=== PATIENT | female | born 1945 | race Caucasian/White ===

== ENCOUNTER 2022-12-20 08:42 | Outpatient (CLI) | payer MEDICARE, SELFPAY ==
[2022-12-20 14:33] LABS: Basophils Absolute Auto 0.1 K/mm3 (0.0-0.1); Basophils Percent Auto 0.8 % (0.2-1.2); Eosinophils Absolute Auto 0.2 K/mm3 (0-0.3); Eosinophils Percent Auto 2.8 % (0-4.4); Hematocrit 39.2 % (37.0-47.0); Hemoglobin 12.8 g/dL (12.0-15.0); Immature Granulocyte Absolute 0.03 K/mm3 (0.00-0.031); Immature Granulocyte Percent A 0.5 % (0-0.5); Lymphocytes Percent Auto 21.5 % (18.3-44.2); Mean Corpuscular HGB Conc 32.7 g/dl (32-36); Mean Corpuscular Hemoglobin 28.6 pg (26-34); Mean Corpuscular Volume 87.5 fl (80-100); Mean Platelet Volume 9.5 fl (7.4-10.4); Monocytes Absolute Auto 0.7 K/mm3 (0.1-0.6); Monocytes Percent Auto 11.6 % (2.6-8.5); Neutrophils Absolute Auto 3.8 K/mm3 (1.3-6.7); Neutrophils Percent Auto 62.8 % (45.5-73.1); Platelet Count Result 344 k/mm3 (150-375); Red Blood Count 4.48 M/mm3 (4.2-5.4); Red Cell Distribution Width 13.1 % (11.5-14.5); White Blood Count 6.1 K/mm3 (4.5-10.0)
[2022-12-20 14:41] LABS: Alanine Aminotransferase 24 U/L (6-35); Albumin Level 4.3 g/dL (3.5-5.1); Alkaline Phosphatase 131 U/L (38-126); Anion Gap 4 mmol/L (8-16); Aspartate Amino Transferase 29 U/L (14-36); Bilirubin,Total 0.6 mg/dL (0.2-1.3); Blood Urea Nitrogen 12 mg/dL (7-17); Calcium 9.4 mg/dL (8.4-10.2); Carbon Dioxide 29 mmol/L (22-30); Chloride 101 mmol/L (98-107); Cholesterol 181 mg/dL (0-200); Estimated Glomerular Filt Rate > 60; Glucose 96 mg/dL (65-110); HDL Direct 42 mg/dL; Potassium 4.3 mmol/L (3.4-5.0); Sodium 134 mmol/L (137-145); Triglycerides 78 mg/dL (<150)
[2022-12-20 14:52] LABS: LDL Cholesterol Direct 100 mg/dL
[2022-12-24 04:48] LABS: Apolipoprotein B 92 mg/dL (<90)
[2022-12-25 04:48] LABS: Lipoprotein A 117 nmol/L (<75)
== END 2022-12-20 08:43 | disposition home or self-care (01) ==
LOC: ANHGOSHLAB 08:47
PROVIDERS: PCP Internal Medicine; Visit Provider Internal Medicine
DX: E03.9 Hypothyroidism, unspecified (principal); I25.10 Atherosclerotic heart disease of native coronary artery without angina pectoris; I10 Essential (primary) hypertension; I25.84 Coronary atherosclerosis due to calcified coronary lesion; E78.5 Hyperlipidemia, unspecified
CPT/HCPCS: 36415; 80053; 80061; 82172; 83695; 84443; 85025

== ENCOUNTER 2023-05-15 10:46 | Emergency (ER) | payer MEDICARE, SELFPAY ==
--- NOTE | ~2023-05-15 | XR_ITS ---
XR knee LT 3V 05/15/2023 11:19 Indication: Left knee pain Procedure: 3 views left knee Comparison: No prior studies for comparison. Findings: Moderate osteoarthritis of the left knee. No fracture or traumatic malalignment. Small join t effusion. No foreign bodies. Impression: 1: Moderate osteoarthritis of the left knee. 2: Small knee effusion. Reviewed, dictated and finalized at location B. ORDER CLERK Impression: 1: Moderate osteoarthritis of the left knee. 2: Small knee effusion.
[2023-05-15 11:03] VITALS: BP 168/77; PULSE 91; RESP 16; TEMP 37.1; O2SAT 97
--- NOTE | 2023-05-15 11:12 | ED.LOWEXIN ---
HPI - Extremity Injury (Lower) General Chief Complaint: Extremity Injury, Lower Stated Complaint: L KNEE PAIN/SWELLING Time Seen by Provider: 05/15/23 11:12 Source: patient, RN notes reviewed and old records reviewed Mode of arrival: ambulatory Limitations: no limitations History of Present Illness HPI Narrative: 77-year-old female presents [facility] with complaints of left knee pain and swelling. Patient reports that she got out of bed yesterday morning and felt a pop to her posterior left knee. Patient report that she had previous meniscus surgery to her left knee about 5 or 6 years ago in [place] were they lived. Family just relocated to this area in the past year. Patient does have mild swelling to her nee and has discomfort to posterior left knee, is able to ambulate on knee without acute pain. Patient has applied ice, Voltaren ointment and taken OTC pain medication. MD complaint: knee injury (left) Onset (ago): day(s) (1) Severity scale (1-10): 4 Treatments prior to arrival: cold therapy, NSAIDS and other (voltaren ointment) Related Data Home Medications Medication Instructions Recorded Confirmed albuterol sulfate 90 mcg/actuation 1 puff inhalation Q4H 12/18/22 05/15/23 aerosol inhaler antiarthritic combination no.2 900 900 mg PO DAILY 12/18/22 05/15/23 mg tablet (glucosamine-chondroitin) budesonide-formoterol HFA 160 2 puff inhalation Q12H 12/18/22 05/15/23 mcg-4.5 mcg/actuation aerosol inhaler calcium carbonate 600 mg-vitamin 1 cap PO DAILY 12/18/22 05/15/23 D3 10 mcg (400 unit) capsule ferrous sulfate 325 mg (65 mg 325 mg PO DAILY 12/18/22 05/15/23 iron) tablet ipratropium bromide 42 mcg (0.06 2 spray intranasal BID 12/18/22 05/15/23 %) nasal spray levothyroxine 25 mcg tablet 25 mcg PO DAILY 12/18/22 05/15/23 loratadine 10 mg tablet 10 mg PO DAILY 12/18/22 05/15/23 [id number]-[id number] 250 mg-dha 90 1 cap PO DAILY 12/18/22 05/15/23 mg-epa 160 mr-ipvf-watj-zeax capsule (Ocuvite Adult 50 Plus) multivitamin 1 tablet PO DAILY 12/18/22 05/15/23 omeprazole 20 mg capsule,delayed 20 mg PO ONCE 01/15/23 05/15/23 release Allergies Allergy/AdvReac Type Severity Reaction Status Date / Time No Known Allergies Allergy Unverified 05/15/23 11:00 Review of Systems Review of Systems: CONSTITUTIONAL: Denies fever, chills, or sweats. EYES: Denies visual changes, redness, or discharge. ENT: Denies rhinorrhea, congestion, sore throat, or otalgia. CARDIOVASCULAR: Denies chest pain, palpitations, or edema. RESPIRATORY: Denies cough or dyspnea. GASTROINTESTINAL: Denies abdominal pain, nausea, vomiting, or diarrhea. GENITOURINARY: Denies dysuria or hematuria. SKIN: Denies rash or itching. MUSCULOSKELETAL: Denies back pain,reports pain to posterior left knee , or myalgia. NEUROLOGIC: Denies headache, numbness, or weakness. PSYCHIATRIC: Denies anxiety or depression. All systems reviewed & are unremarkable except as noted in HPI and below PMFSH Past Medical History Medical History Acquired hypothyroidism Asthma Chronic asthmatic bronchitis Chronic congestion of paranasal sinus COPD (chronic obstructive pulmonary disease) Coronary atherosclerosis due to calcified coronary lesion GERD (gastroesophageal reflux disease) History of syncope Hyperlipidemia Hypertension Thyroid disorder Surgical History Surgical History History of esophagogastroduodenoscopy (EGD) History of meniscectomy of left knee Family History Family History Father Heart problem Mother Multiple sclerosis Grandparent Heart problem Social History Social History Smoking status: Never smoker Second hand tobacco smoke exposure: No Alcohol intake: never Substance use: never Lack of Transportati
== END 2023-05-15 11:43 | disposition home or self-care (01) ==
PROVIDERS: Emergency Provider Registered Nurse; PCP Internal Medicine
DX: M25.562 Pain in left knee (principal); E03.9 Hypothyroidism, unspecified; J44.9 Chronic obstructive pulmonary disease, unspecified; I25.10 Atherosclerotic heart disease of native coronary artery without angina pectoris; E78.5 Hyperlipidemia, unspecified; I10 Essential (primary) hypertension
CPT/HCPCS: 73562; 99213; G0463

== ENCOUNTER 2023-05-18 08:34 | Outpatient (CLI) | payer MEDICARE, SELFPAY ==
[2023-05-18 09:04] LABS: Basophils Absolute Auto 0.1 K/mm3 (0.0-0.1); Basophils Percent Auto 0.8 % (0.2-1.2); Eosinophils Absolute Auto 0.2 K/mm3 (0-0.3); Eosinophils Percent Auto 2.5 % (0-4.4); Hematocrit 41.8 % (37.0-47.0); Hemoglobin 13.4 g/dL (12.0-15.0); Immature Granulocyte Absolute 0.03 K/mm3 (0.00-0.031); Immature Granulocyte Percent A 0.5 % (0-0.5); Lymphocytes Percent Auto 20.3 % (18.3-44.2); Mean Corpuscular HGB Conc 32.1 g/dl (32-36); Mean Corpuscular Hemoglobin 28.5 pg (26-34); Mean Corpuscular Volume 88.7 fl (80-100); Mean Platelet Volume 9.2 fl (7.4-10.4); Monocytes Absolute Auto 0.5 K/mm3 (0.1-0.6); Monocytes Percent Auto 8.5 % (2.6-8.5); Neutrophils Percent Auto 67.4 % (45.5-73.1); Platelet Count Result 354 k/mm3 (150-375); Red Blood Count 4.71 M/mm3 (4.2-5.4); Red Cell Distribution Width 13.2 % (11.5-14.5); White Blood Count 5.9 K/mm3 (4.5-10.0)
[2023-05-18 09:08] LABS: Alanine Aminotransferase 27 U/L (6-35); Albumin Level 4.7 g/dL (3.5-5.1); Alkaline Phosphatase 112 U/L (38-126); Anion Gap 11 mmol/L (8-16); Aspartate Amino Transferase 28 U/L (14-36); Bilirubin,Total 0.6 mg/dL (0.2-1.3); Blood Urea Nitrogen 11 mg/dL (7-17); Calcium 9.8 mg/dL (8.4-10.2); Carbon Dioxide 26 mmol/L (22-30); Chloride 102 mmol/L (98-107); Cholesterol 162 mg/dL (0-200); Estimated Glomerular Filt Rate > 60; Glucose 99 mg/dL (65-110); HDL Direct 49 mg/dL; Potassium 4.2 mmol/L (3.4-5.0); Sodium 139 mmol/L (137-145); Triglycerides 100 mg/dL (<150)
[2023-05-18 09:18] LABS: LDL Cholesterol Direct 72 mg/dL
[2023-05-22 04:17] LABS: Apolipoprotein B 71 mg/dL (<90)
== END 2023-05-18 08:35 | disposition home or self-care (01) ==
LOC: ANHLAB 08:36
PROVIDERS: PCP Internal Medicine; Visit Provider Internal Medicine
DX: E03.9 Hypothyroidism, unspecified (principal); E78.5 Hyperlipidemia, unspecified; I10 Essential (primary) hypertension; I25.10 Atherosclerotic heart disease of native coronary artery without angina pectoris; I25.84 Coronary atherosclerosis due to calcified coronary lesion; J45.909 Unspecified asthma, uncomplicated
CPT/HCPCS: 36415; 80053; 80061; 82172; 84443; 85025

== ENCOUNTER 2023-05-31 08:44 | Outpatient (RCR) | payer MEDICARE, OTHER, SELFPAY ==
--- NOTE | 2023-05-31 10:05 | PTOPEVAL1 ---
Assessment and note entered by Katty Calderon, PT, DPT Evaluation Information Assessment Status Evaluation Diagnosis L knee pain Onset 1 month Subjective Information Pt states about a month ago she turned to get out of bed and felt a pop in her knee. She states initially after that it was really painful and it was hard to put weight on her leg. She states the next few days she used a cane to get around. She states she has no consistent pain now. She now reports intermittent soreness along the medial patella and posterior knee fossa. Pt states she continues to ride her bike and walk without knee pain, her SOB is a limiting factor. Reported Pain Level Pain Score 0: Self Report Assessment PT Clinical Summary Teressa presents to therapy today for her initial evaluation with a diagnosis of L knee pain. Today she demonstrates good LE ROM with a minor limitation in active extension but demonstrates good passive extension. She demonstrates no functional limitations d/t her knee. She was given extensive education on benefits of consistent exercise and was given information on community resources. She does not require skilled therapy services and will be discharged at this time. Plan of Care Interventions Patient/Caregiver Educati,Therapeutic Exercise PT Services Indicated No Treatment Frequency and evaluation and discharge Duration These treatments will address the objective and functional deficits as defined above. The patient will be advanced safely and appropriately in order for the patient to progress towards his/her prior level of function. Additional exercises will be introduced and as well as a comprehensive home exercise program upon discharge, if needed, ?to ensure carryover of functional gains achieved in the clinic. This treatment plan has been reviewed and agreement upon by the patient.
== END 2023-05-31 10:32 | disposition home or self-care (01) ==
LOC: ANHGOSHPT 08:44
PROVIDERS: PCP Internal Medicine; Visit Provider Internal Medicine
DX: M25.562 Pain in left knee (principal)
CPT/HCPCS: 97110; 97161

== ENCOUNTER 2023-06-25 11:28 | Emergency (ER) | payer MEDICARE, SELFPAY ==
[2023-06-25 11:36] VITALS: BP 142/72; PULSE 106; RESP 16; TEMP 37.3; O2SAT 96
--- NOTE | 2023-06-25 11:36 | ED.AMS ---
HPI - Altered Mental Status General Chief Complaint: Neuro Symptoms/Deficit Stated Complaint: Unknown Time Seen by Provider: 06/25/23 11:30 Source: patient and family Mode of arrival: ambulatory Limitations: no limitations History of Present Illness HPI narrative: Teressa is a 77-year-old female patient presenting to the clinic today with her with concerns for altered mental status. Has been reports that patient has not been acting appropriately since last night before 10:00 p.m.. States that they were getting ready to go to bed and patient's spouse asked her what time it was and she told him it was 430 when that was not the actual time. He reports that she has been very slow to respond and hesitant with using her words. stated that he thought that she was ?pulling his leg . States that they went to bed afterwards. When she woke up this morning she was sitting in a chair and he was talking to the patient and she was not responding at that time. When she finally did respond she was again hesitant when using her words and slow to respond. She reports she does have a headache this morning. Denies any urinary symptoms. 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 Patient's son-in-law in February and she has been has having hard time dealing with this. At the time of visit patient is conscious alert oriented x4. Is able to tell me that the recent holiday was , knows what day of the week it is, who the president is, name/, and her current location. No history of TIA or CVA in the past. Patient does have history hyperlipidemia, high blood pressure, hypothyroidism, and coronary artery disease. No history of diabetes. Related Data Home Medications Medication Instructions Recorded Confirmed albuterol sulfate 90 mcg/actuation 1 puff inhalation Q4H 12/18/22 06/25/23 aerosol inhaler antiarthritic combination no.2 900 900 mg PO DAILY 12/18/22 06/25/23 mg tablet (glucosamine-chondroitin) budesonide-formoterol HFA 160 2 puff inhalation Q12H 12/18/22 06/25/23 mcg-4.5 mcg/actuation aerosol inhaler calcium carbonate 600 mg-vitamin 1 cap PO DAILY 12/18/22 06/25/23 D3 10 mcg (400 unit) capsule ferrous sulfate 325 mg (65 mg 325 mg PO DAILY 12/18/22 06/25/23 iron) tablet levothyroxine 25 mcg tablet 25 mcg PO DAILY 12/18/22 06/25/23 loratadine 10 mg tablet 10 mg PO DAILY 12/18/22 06/25/23 sxusubwa-cok- 250 mg-dha 90 1 cap PO DAILY 12/18/22 06/25/23 mg-epa 160 du-opip-wmqq-zeax capsule (Ocuvite Adult 50 Plus) multivitamin 1 tablet PO DAILY 12/18/22 06/25/23 omeprazole 20 mg capsule,delayed 20 mg PO ONCE 01/15/23 06/25/23 release Allergies Allergy/AdvReac Type Severity Reaction Status Date / Time No Known Allergies Allergy Unverified 06/25/23 11:31 Review of Systems Review of Systems: Pertinent positives per HPI. Patient denies any fever, chills, rash, visual changes, dizziness, cough, shortness of breath, chest pain, palpitations, nausea, vomiting, diarrhea, constipation, abdominal pain, or any urinary issues. FORMERLY [facility], [facility]–1983 Past Medical History Medical History Acquired hypothyroidism Asthma Chronic asthmatic bronchitis Chronic congestion of paranasal sinus COPD (chronic obstructive pulmonary disease) Coronary atherosclerosis due to calcified coronary lesion GERD (gastroesophageal reflux disease) History of syncope Hyperlipidemia Hypertension Thyroid disorder Surgical History Surgical History History of esophagogastroduodenoscopy (EGD) History of meniscectomy of left knee Family History Family History Father Heart problem Mother Multiple sclerosis Grandparent Heart problem Social History Social History Smoking status: Never smoker
== END 2023-06-25 11:55 | disposition short-term general hospital (02) ==
LOC: EXPGOSH 11:33
PROVIDERS: Emergency Provider Nurse Practitioner Family; PCP Internal Medicine
DX: R41.82 Altered mental status, unspecified (principal); E03.9 Hypothyroidism, unspecified; J44.9 Chronic obstructive pulmonary disease, unspecified; I25.10 Atherosclerotic heart disease of native coronary artery without angina pectoris; K21.9 Gastro-esophageal reflux disease without esophagitis; E78.5 Hyperlipidemia, unspecified; I10 Essential (primary) hypertension
CPT/HCPCS: 99213; G0463

== ENCOUNTER 2023-06-25 12:18 | Emergency (ER) | payer MEDICARE, SELFPAY ==
--- NOTE | ~2023-06-25 | CT_ITS ---
Non-contrast Head CT History: TIA Technique: Axial non-contrast imaging of the brain was performed. Dose reduction technique was used on this scan by utilizing automated exposure control and iterative reconstruction technique. The dose -length product (DLP) was 681.00 mGy-cm. Findings: There is no evidence of intracranial hemorrhage, mass lesion, or acute infarct. Chronic bi lateral basal ganglia lacunar infarcts noted. The ventricles and subarachnoid spaces are normal in s ize. The calvarium appears normal. The visualized paranasal sinuses and mastoid air cells are clear . Impression: No acute abnormality seen. Chronic bilateral basal ganglia lacunar infarcts. Reviewed, dictated and finalized at location . ENT STRATEGIST Impression: No acute abnormality seen. Chronic bilateral basal ganglia lacunar infarcts.
--- NOTE | ~2023-06-25 | XR_ITS ---
XR chest 2V DATE: 06/25/2023 14:32 INDICATION: Cough. Confusion. Altered mental state. TECHNIQUE: PA and lateral views COMPARISON: None FINDINGS: Minimal atelectasis is suggested at the lung bases. The lungs otherwise appear clear. No pulmonary vascular congestion or pleural effusion or pneumothorax is detected. No hilar or mediastinal enlargement. There is aortic calcification. Diffuse osteopenia. IMPRESSION: Minimal atelectasis at the lung bases. Reviewed, dictated and finalized at location L. ECT MANAGER SENIOR
[2023-06-25 12:25] VITALS: BP 156/77; PULSE 95; RESP 18; TEMP 36.7; O2SAT 100
--- NOTE | 2023-06-25 14:04 | ED.GENADULT ---
HPI - General Adult General Chief complaint: Altered Mental Status <Dirk Verduzco PA-C - Last Filed: 06/25/23 14:45> Stated complaint: boss/confusion <Dirk Verduzco PA-C - Last Filed: 06/25/23 14:45> Time Seen by Provider: 06/25/23 14:04 <Dirk Verduzco PA-C - Last Filed: 06/25/23 14:45> Focused HPI: This is a 77-year-old female presents with her and with chief complaint of altered level of consciousness that occurred a yesterday evening and this morning. They were seen by urgent care today and referred over for possible TIA. states that when it was time for bed last night the patient responded to him by repeating 435 as if that was the time. He reports that she continued to answer questions inappropriately and had very slow speech. The same thing happened this morning. Here the patient feel that she is back to baseline at this point. She denies any numbness, weakness, neck pain, fevers, chills, vision changes. GENERAL: Well-appearing, well-nourished, and in no acute distress. HEAD: Normocephalic, atraumatic. CHEST: Clear to auscultation. No respiratory distress. HEART: Regular rate and rhythm. NEURO: Alert and oriented x4. No focal deficit. Answers questions appropriately. Patient screened in triage and initial orders placed. Additional care and disposition to be based upon diagnostic testing and treatment. <Dirk Verduzco PA-C - Last Filed: 06/25/23 14:45> Related Data Home medications: Home Medications Medication Instructions Recorded Confirmed albuterol sulfate 90 mcg/actuation 1 puff inhalation Q4H 12/18/22 06/25/23 aerosol inhaler antiarthritic combination no.2 900 900 mg PO DAILY 12/18/22 06/25/23 mg tablet (glucosamine-chondroitin) budesonide-formoterol HFA 160 2 puff inhalation Q12H 12/18/22 06/25/23 mcg-4.5 mcg/actuation aerosol inhaler calcium carbonate 600 mg-vitamin 1 cap PO DAILY 12/18/22 06/25/23 D3 10 mcg (400 unit) capsule ferrous sulfate 325 mg (65 mg 325 mg PO DAILY 12/18/22 06/25/23 iron) tablet levothyroxine 25 mcg tablet 25 mcg PO DAILY 12/18/22 06/25/23 loratadine 10 mg tablet 10 mg PO DAILY 12/18/22 06/25/23 acyjqjly-uve-dofmd5 250 mg-dha 90 1 cap PO DAILY 12/18/22 06/25/23 mg-epa 160 rc-ijkc-gmqk-zeax capsule (Ocuvite Adult 50 Plus) multivitamin 1 tablet PO DAILY 12/18/22 06/25/23 omeprazole 20 mg capsule,delayed 20 mg PO ONCE 01/15/23 06/25/23 release <Dirk Verduzco PA-C - Last Filed: 06/25/23 14:45> Allergies/adverse reactions: Allergies Allergy/AdvReac Type Severity Reaction Status Date / Time No Known Allergies Allergy Unverified 06/25/23 14:05 <Dirk Verduzco PA-C - Last Filed: 06/25/23 14:45> Review of Systems Review of Systems: All systems are reviewed and are negative unless stated otherwise in the HPI. <Lee Mcfarland MD - Last Filed: 06/25/23 17:01> PMFSH Past Medical History Medical History: Medical History Acquired hypothyroidism Asthma Chronic asthmatic bronchitis Chronic congestion of paranasal sinus COPD (chronic obstructive pulmonary disease) Coronary atherosclerosis due to calcified coronary lesion GERD (gastroesophageal reflux disease) History of syncope Hyperlipidemia Hypertension Thyroid disorder <Dirk Verduzco PA-C - Last Filed: 06/25/23 14:45> Surgical History Surgical History: Surgical History History of esophagogastroduodenoscopy (EGD) History of meniscectomy of left knee <Dirk Verduzco PA-C - Last Filed: 06/25/23 14:45> Family History Family History: Family History Father Heart problem Mother Multiple sclerosis Grandparent Heart problem <Dirk Verduzco PA-C - Last Filed: 06/25/23 14:45> Social History Social History: Social History (Reviewed 06/25/23 @ 16:
[2023-06-25 14:06] VITALS: BP 174/56; PULSE 87; RESP 17; O2SAT 96
[2023-06-25 14:27] LABS: Basophils Percent Auto 0.5 % (0.2-1.2); Hematocrit 41.2 % (37.0-47.0); Hemoglobin 13.4 g/dL (12.0-15.0); Immature Granulocyte Absolute 0.03 K/mm3 (0.00-0.031); Immature Granulocyte Percent A 0.4 % (0-0.5); Lymphocytes Absolute Auto 1.21 K/mm3 (0.9-3.2); Lymphocytes Percent Auto 14.5 % (18.3-44.2); Mean Corpuscular HGB Conc 32.5 g/dl (32-36); Mean Corpuscular Hemoglobin 28.6 pg (26-34); Mean Corpuscular Volume 87.8 fl (80-100); Mean Platelet Volume 9.1 fl (7.4-10.4); Monocytes Percent Auto 11.5 % (2.6-8.5); Neutrophils Absolute Auto 6.1 K/mm3 (1.3-6.7); Neutrophils Percent Auto 73.1 % (45.5-73.1); Platelet Count Result 292 k/mm3 (150-375); Red Blood Count 4.69 M/mm3 (4.2-5.4); Red Cell Distribution Width 13.6 % (11.5-14.5); White Blood Count 8.3 K/mm3 (4.5-10.0)
[2023-06-25 14:36] LABS: Alanine Aminotransferase 23 U/L (6-35); Albumin Level 4.2 g/dL (3.5-5.1); Alkaline Phosphatase 112 U/L (38-126); Anion Gap 8 mmol/L (8-16); Aspartate Amino Transferase 27 U/L (14-36); Bilirubin,Total 0.5 mg/dL (0.2-1.3); Blood Urea Nitrogen 12 mg/dL (7-17); Carbon Dioxide 28 mmol/L (22-30); Chloride 96 mmol/L (98-107); Estimated CRCL calculation 49 ml/min; Estimated Glomerular Filt Rate > 60; Glucose 97 mg/dL (65-110); Potassium 4.3 mmol/L (3.4-5.0); Sodium 132 mmol/L (137-145)
[2023-06-25 14:37] LABS: Prothrombin Time 13.3 Seconds (11.1-14.7)
[2023-06-25 14:38] LABS: Partial Thromboplastin Time 35.4 SECONDS (22.3-36.8)
[2023-06-25] MEDS: ACETAMINOPHEN 325 MG TABLET 650 MG PO (14:43)
[2023-06-25 16:04] VITALS: PULSE 90; RESP 23; O2SAT 96
[2023-06-25 16:05] VITALS: BP 161/80; PULSE 87; RESP 24; O2SAT 95
[2023-06-25 16:21] LABS: Appearance Urine Cloudy (Clear); Bacteria Urine 4+ /hpf; Bilirubin Urine Negative (Negative); Blood Urine 2+ (Negative); Color Urine Yellow (Yellow); Glucose Urine UA Negative (Negative); Ketones Urine 1+ mg/dL (Negative); Leukocyte Esterase Ur 2+ LEU/UL (Negative); Nitrate Urine Positive (Negative); Protein Urine 1+ mg/dL (Negative); Squamous Epithelial Cell Urine Few /hpf (Few); WBC Urine 21-50 /hpf
[2023-06-25 16:23] LABS: Add Urine Microscopic? YES
[2023-06-25 17:26] VITALS: BP 136/68; PULSE 79; RESP 20; O2SAT 94
== END 2023-06-25 17:27 | disposition home or self-care (01) ==
PROVIDERS: Physician Assistant; Emergency Provider Emergency Medicine; PCP Internal Medicine
DX: N39.0 Urinary tract infection, site not specified (principal); J44.9 Chronic obstructive pulmonary disease, unspecified; I25.10 Atherosclerotic heart disease of native coronary artery without angina pectoris; I10 Essential (primary) hypertension; E03.9 Hypothyroidism, unspecified; E78.5 Hyperlipidemia, unspecified; K21.9 Gastro-esophageal reflux disease without esophagitis
CPT/HCPCS: 36415; 70450; 71046; 80053; 81001; 85025; 85610; 85730; 87077; 87086; 87186; 96365; 99284; A9270; J0696

== ENCOUNTER 2023-08-16 09:05 | Outpatient (CLI) | payer MEDICARE, OTHER, SELFPAY ==
--- NOTE | ~2023-08-16 | CT_ITS ---
EXAMINATION: CT sinus wo con DATE: 08/16/2023 09:23 INDICATION: Chronic maxillary sinusitis TECHNIQUE: Computed tomography (CT) of the paranasal sinuses was performed without intravenous contra st. The dose-length product (DLP) was 399.18 mGy-cm. Iterative reconstruction was used. COMPARISON: None FINDINGS: There is normal development and pneumatization of the paranasal sinuses. There is partial o pacification of the bilateral maxillary sinuses with sclerosis of the maxillary sinus nichole. There is minimal opacification in the posterior ethmoidal air cells on the right. The frontal and sphenoid si nuses are clear. The bilateral ostiomeatal complexes are patent. Visualized soft tissues are unremark able. IMPRESSION: 1. Sinusitis as detailed above with evidence of chronic maxillary sinusitis Reviewed, dictated and finalized at location B. S MANAGER [employer]ED [employer]ALS
== END 2023-08-16 09:06 ==
LOC: GOSHIMG 09:07
PROVIDERS: PCP Internal Medicine; Visit Provider Otolaryngology
DX: J34.89 Other specified disorders of nose and nasal sinuses (principal); J32.0 Chronic maxillary sinusitis
CPT/HCPCS: 70486

== ENCOUNTER 2023-11-25 09:57 | Outpatient (CLI) | payer MEDICARE, SELFPAY ==
[2023-11-25 13:46] LABS: Alanine Aminotransferase 19 U/L (6-35); Albumin Level 4.5 g/dL (3.5-5.1); Alkaline Phosphatase 100 U/L (38-126); Anion Gap 8 mmol/L (4-12); Aspartate Amino Transferase 68 U/L (14-36); Bilirubin,Total 0.5 mg/dL (0.2-1.3); Blood Urea Nitrogen 10 mg/dL (7-17); Calcium 9.5 mg/dL (8.4-10.2); Carbon Dioxide 28 mmol/L (22-30); Chloride 100 mmol/L (98-107); Estimated Glomerular Filt Rate > 60; Glucose 77 mg/dL (65-110); Potassium 4.6 mmol/L (3.4-5.0); Sodium 136 mmol/L (137-145)
== END 2023-11-25 09:58 | disposition home or self-care (01) ==
PROVIDERS: PCP Internal Medicine; Visit Provider Internal Medicine
DX: E03.9 Hypothyroidism, unspecified (principal); E87.1 Hypo-osmolality and hyponatremia; I10 Essential (primary) hypertension
CPT/HCPCS: 36415; 80053; 84443

== ENCOUNTER 2023-11-25 10:05 | Outpatient (CLI) | payer MEDICARE, OTHER, SELFPAY ==
--- NOTE | ~2023-11-25 | XR_ITS ---
XR humerus RT Ordering provider: Jaylen Purcell DO History: . no injury mid shaft pain . Comparison: None. FINDINGS: BONES: No acute fracture or dislocation. JOINT SPACES: Normal. SOFT TISSUES: Normal. IMPRESSION: No acute osseous abnormality right humerus. Reviewed, dictated and finalized at location A.
== END 2023-11-25 10:06 ==
LOC: GOSHIMG 10:06
PROVIDERS: PCP Internal Medicine; Visit Provider Internal Medicine
DX: M79.621 Pain in right upper arm (principal)
CPT/HCPCS: 73060

== ENCOUNTER 2023-12-06 14:03 | Outpatient (CLI) | payer MEDICARE, SELFPAY ==
--- NOTE | ~2023-12-06 | DEXA_ITS ---
Bone Density Report Name: NEETA DUMAS Age: 78 Sex: Female Ethnicity: White Date of : 1945 Indication: postmenopausal; screening for osteoporosis; height loss; history of glucocorticoids; prior fracture; asthma or emphysema; Referring Provider: MOISÉS NASH Study: Bone densitometry was performed. Exam Date: December 06, 2023 Accession number: [id number] Bone Density: Region BMD T-score Z-score Classification AP Spine(L1, L2, L4) 0.871 -1.5 1.0 Osteopenia Femoral Neck (Left) 0.668 -1.6 0.6 Osteopenia Total Hip (Left) 0.664 -2.3 -0.4 Osteopenia Femoral Neck (Right) 0.599 -2.2 -0.1 Osteopenia Total Hip (Right) 0.650 -2.4 -0.5 Osteopenia Total Hip Mean 0.657 -2.4 -0.5 Osteopenia World Health Organization criteria for BMD impression classify patients as: Normal (T-score at or above -1.0), Osteopenia (T-score between -1.0 and -2.5), or Osteoporosis (T-score at or below -2.5). 10-year Fracture Risk: FRAX not reported because: Prior hip or vertebral fracture Clinical Information Provided by Patient: Have had a previous hip or vertebral fracture Has had a low trauma fracture Has taken Glucocorticoids Has used the following medications: Vitamin D, Calcium Has the following medical conditions: Asthma or Emphysema Patient maximum height was 64.75 Menopause Age: 51 Drinks caffeinated beverages Onset of menses at age 14 Number of children 3 Impression: The patient has low bone mass, based on the Right Total Hip T-score. The patient has risk factors, including: previous fracture, history of glucocorticoid therapy. Discussion: INCREASED RISK OF FRACTURE DUE TO HISTORY OF FRACTURE. The patient's previous fracture puts the patient at high risk of a future fracture. In untreated patients, the risk of osteoporotic fracture increases approximately two-fold for each 1.0 SD decrease in T-score. Low bone density is not the only risk factor for fracture; also consider factors such as patient's age, frailty or poor health, risk of falling, risk of injury, previous osteoporotic fracture, family history of osteoporosis, cigarette smoking, low body weight, etc. Not everyone with a low trauma fracture has osteoporosis; osteomalacia and other metabolic bone disorders should also be considered. Patients who have osteoporosis should be evaluated for specific diseases and conditions (secondary causes) that may cause or contribute to bone loss and fracture risk. National Osteoporosis Foundation (NOF) recommends pharmacologic intervention for patients with a prior hip or vertebral fracture regardless of BMD T-score. The patient should follow a healthful lifestyle (good nutrition with adequate calcium and vitamin D, and appropriate weight-bearing exercise). Follow-Up: Consider a repeat BMD and Vertebral Fracture Assessment
== END 2023-12-06 14:04 | disposition home or self-care (01) ==
PROVIDERS: PCP Internal Medicine; Visit Provider Internal Medicine
DX: M85.89 Other specified disorders of bone density and structure, multiple sites (principal); Z78.0 Asymptomatic menopausal state; Z13.820 Encounter for screening for osteoporosis
CPT/HCPCS: 77080

== ENCOUNTER 2023-12-19 11:57 | Outpatient (RCR) | payer MEDICARE, SELFPAY ==
--- NOTE | 2023-12-19 12:46 | PTOPEVAL1 ---
Assessment and note entered by Yoseph Rodriguez Evaluation Information Assessment Status Evaluation Diagnosis pain in right arm Onset 06/20/23 Subjective Information Pt. reports having a gradual onset of right arm pain described in the lateral brachial region. She recalls no trauma. She reports that pain was gradually worsening, but she has since noticed a significant improvement in her pain over the past couple weeks. She states that she recently had a bone density scan indicating osteoporosis. She states that her pain has been gone over the past couple weeks. She reports that reaching overhead was painful when she was experiencing pain. She states that she has not been limited in daily activities over the past 2 weeks. She reports that she is uncertain of her current goal for PT due to pain having been minimal to nothing over the past couple weeks. Reported Pain Level Pain Score 0: Self Report Assessment PT Clinical Summary Pt. is a 78 year old female who enters the clinic with developed right arm pain. Pt. presentation this date is consistent with mild rotator cuff syndrome on the right. She demonstrates no functional deficits and is currently independent with a HEP. She was provided WB exercises to assist with hx of osteoporosis. At this time pt. is encouraged to continue with her HEP and will be discharged from our care. Plan of Care PT Services Indicated No Treatment Frequency and D/C from PT to an independent HEP. Duration These treatments will address the objective and functional deficits as defined above. The patient will be advanced safely and appropriately in order for the patient to progress towards his/her prior level of function. Additional exercises will be introduced and as well as a comprehensive home exercise program upon discharge, if needed, ?to ensure carryover of functional gains achieved in the clinic. This treatment plan has been reviewed and agreement upon by the patient.
--- NOTE | 2024-03-06 16:08 | PTOPDC ---
Assessment and note entered by Sergio King, PT Evaluation Information Assessment Status Discharge - Pt Not Presen Diagnosis pain in right arm Onset 06/20/23 Subjective Information Pt. reports having a gradual onset of right arm pain described in the lateral brachial region. She recalls no trauma. She reports that pain was gradually worsening, but she has since noticed a significant improvement in her pain over the past couple weeks. She states that she recently had a bone density scan indicating osteoporosis. She states that her pain has been gone over the past couple weeks. She reports that reaching overhead was painful when she was experiencing pain. She states that she has not been limited in daily activities over the past 2 weeks. She reports that she is uncertain of her current goal for PT due to pain having been minimal to nothing over the past couple weeks. Assessment PT Clinical Summary Patient has not returned to therapy since initial evaluation on December 19, 2023. No contact with clinic. Patient will be discharged at this time to [facility]. Please see evaluation note for discharge status. Plan of Care PT Services Indicated No
== END 2024-03-09 09:20 | disposition home or self-care (01) ==
LOC: ANHGOSHPT 11:57
PROVIDERS: PCP Internal Medicine; Visit Provider Internal Medicine
DX: M79.601 Pain in right arm (principal)
CPT/HCPCS: 97110; 97161

== ENCOUNTER 2023-12-30 08:34 | Outpatient (CLI) | payer MEDICARE, SELFPAY ==
[2023-12-30 15:44] LABS: Alanine Aminotransferase 19 U/L (6-35); Albumin Level 4.4 g/dL (3.5-5.1); Alkaline Phosphatase 102 U/L (38-126); Aspartate Amino Transferase 44 U/L (14-36); Bilirubin,Total 0.6 mg/dL (0.2-1.3)
== END 2023-12-30 08:35 | disposition home or self-care (01) ==
PROVIDERS: PCP Internal Medicine; Visit Provider Internal Medicine
DX: R74.8 Abnormal levels of other serum enzymes (principal)
CPT/HCPCS: 36415; 80076

== ENCOUNTER 2024-05-26 08:18 | Outpatient (CLI) | payer MEDICARE, OTHER, SELFPAY ==
[2024-05-26 13:54] LABS: Alanine Aminotransferase 21 U/L (6-35); Albumin Level 4.3 g/dL (3.5-5.1); Alkaline Phosphatase 97 U/L (38-126); Anion Gap 4 mmol/L (4-12); Aspartate Amino Transferase 87 U/L (14-36); Bilirubin,Total 0.7 mg/dL (0.2-1.3); Blood Urea Nitrogen 11 mg/dL (7-17); Calcium 9.7 mg/dL (8.4-10.2); Carbon Dioxide 31 mmol/L (22-30); Chloride 101 mmol/L (98-107); Estimated Glomerular Filt Rate > 60; Glucose 72 mg/dL (65-110); Potassium 4.4 mmol/L (3.4-5.0); Sodium 136 mmol/L (137-145)
== END 2024-05-26 08:19 | disposition home or self-care (01) ==
LOC: ANHGOSHLAB 08:21
PROVIDERS: PCP Internal Medicine; Visit Provider Internal Medicine
DX: E87.1 Hypo-osmolality and hyponatremia (principal)
CPT/HCPCS: 36415; 80053

== ENCOUNTER 2024-06-01 09:35 | Outpatient (CLI) | payer MEDICARE, OTHER, SELFPAY ==
[2024-06-01 13:01] LABS: Iron 66 ug/dL (37-170)
[2024-06-01 13:11] LABS: Percent Iron Saturation 19 % (20-50)
[2024-06-01 13:23] LABS: Hepatitis B Surface Antigen Negative (Negative)
[2024-06-01 13:40] LABS: Hepatitis C Virus Antibody Negative (Negative)
[2024-06-02 21:29] LABS: GGT 13 U/L (3-65)
== END 2024-06-01 09:36 | disposition home or self-care (01) ==
LOC: ANHGOSHLAB 09:38
PROVIDERS: PCP Internal Medicine; Visit Provider Internal Medicine
DX: R74.8 Abnormal levels of other serum enzymes (principal)
CPT/HCPCS: 36415; 82728; 82977; 83540; 83550; 86803; 87340

== ENCOUNTER 2024-06-11 09:18 | Outpatient (CLI) | payer MEDICARE, OTHER, SELFPAY ==
--- NOTE | ~2024-06-11 | US_ITS ---
EXAM: ABDOMEN ULTRASOUND HISTORY: R74.01 - Elevation of levels of liver transaminase levels COMPARISON: None FINDINGS: LIVER: The liver is unremarkable in echogenicity and size. The portal vein is patent demonstrating he patopedal flow. The contour of the liver is smooth. GALLBLADDER: No stones are identified within the gallbladder. No gallbladder wall thickening or pericholecystic fluid. BILE DUCTS: Common bile duct measures 3.8mm. PANCREAS: Limited evaluation of the pancreas secondary to overlying bowel gas SPLEEN: The spleen is unremarkable in echogenicity and size measuring 8cm in longitudinal dimension. RIGHT KIDNEY: 9.1 cm. In length. No hydronephrosis or bulky renal calculi. LEFT KIDNEY: 9.8cm in length. No hydronephrosis or renal calculi. VASCULATURE : The abdominal aorta is nonaneurysmal. The IVC is patent. IMPRESSION: Unremarkable sonographic evaluation of the abdomen, as detailed above. Evaluation of the pancreas is limited by overlying bowel gas. Reviewed, dictated and finalized at location A. EL POST CARRIER
== END 2024-06-11 09:19 | disposition home or self-care (01) ==
LOC: GOSHIMG 09:19
PROVIDERS: PCP Internal Medicine; Visit Provider Internal Medicine
DX: R74.01 Elevation of levels of liver transaminase levels (principal); R74.8 Abnormal levels of other serum enzymes
CPT/HCPCS: 76700

== ENCOUNTER 2024-07-30 10:24 | Emergency (ER) | payer MEDICARE, SELFPAY ==
[2024-07-30 10:37] VITALS: BP 136/64; PULSE 105; RESP 20; TEMP 37.5; O2SAT 94
--- NOTE | 2024-07-30 11:03 | ED_ITS ---
HPI - URI/Sore Throat General Chief Complaint: Upper Respiratory Infection Stated Complaint: Cough Time Seen by Provider: 07/30/24 10:40 Source: patient Mode of arrival: ambulatory Limitations: no limitations History of Present Illness HPI Narrative: 78-year-old female presents with complaint of cough, congestion, generalized weakness for 4-5 days. Reports increased fatigue, ?not feeling well ?. Shortness of breath exertion starting yesterday. Decreased appetite, eating and drinking little. All systems reviewed and negative except as noted above. Related Data Home Medications ?Medication ?Instructions ?Recorded ?Confirmed ?Last Taken ?Type antiarthritic combination no.2 900 900 mg PO DAILY 12/18/22 06/01/24 Unknown History mg tablet (glucosamine-chondroitin) budesonide-formoterol HFA 160 2 puff inhalation Q12H 12/18/22 06/01/24 Unknown History mcg-4.5 mcg/actuation aerosol inhaler calcium 600 mg (as 1 cap PO DAILY 12/18/22 06/01/24 Unknown History carbonate)-vitamin D3 10 mcg (400 unit) capsule ferrous sulfate 325 mg (65 mg 325 mg PO DAILY 12/18/22 06/01/24 Unknown History iron) tablet loratadine 10 mg tablet 10 mg PO DAILY 12/18/22 06/01/24 Unknown History chyanlkv-zkm- 250 mg-dha 90 1 cap PO DAILY 12/18/22 06/01/24 Unknown History mg-epa 160 gu-kfqp-oseq-zeax capsule (Ocuvite Adult 50 Plus) multivitamin 1 tablet PO DAILY 12/18/22 06/01/24 Unknown History cyanocobalamin (vitamin B-12) 100 100 mcg PO DAILY 09/30/23 06/01/24 Unknown History mcg tablet (Vitamin B-12) guaifenesin 600 mg tablet, 600 mg PO BID 09/30/23 06/01/24 Unknown History extended release 12 hr (Mucinex) Allergies Allergy/AdvReac Type Severity Reaction Status Date / Time No Known Allergies Allergy Verified 06/01/24 08:51 Review of Systems Review of Systems: CONSTITUTIONAL: Denies fever, chills, or sweats. Reports generalized weakness and fatigue EYES: Denies visual changes, redness, or discharge. ENT: Reports rhinorrhea, congestion. Denies sore throat, or otalgia. CARDIOVASCULAR: Denies chest pain, palpitations, or edema. RESPIRATORY: Reports cough. Denies dyspnea. GASTROINTESTINAL: Denies abdominal pain, nausea, vomiting, or diarrhea. GENITOURINARY: Denies dysuria or hematuria. SKIN: Denies rash or itching. MUSCULOSKELETAL: Denies back pain, joint pain, or myalgia. NEUROLOGIC: Denies headache, numbness, or weakness. PSYCHIATRIC: Denies anxiety or depression. All other systems reviewed are negative, except as documented in HPI. [facility] Past Medical History Medical History Chronic congestion of paranasal sinus Hyperlipidemia Acquired hypothyroidism Coronary atherosclerosis due to calcified coronary lesion History of syncope Chronic asthmatic bronchitis Thyroid disorder Hypertension GERD (gastroesophageal reflux disease) COPD (chronic obstructive pulmonary disease) Asthma Surgical History Surgical History History of esophagogastroduodenoscopy (EGD) History of meniscectomy of left knee Family History Family History Father Heart problem Mother Multiple sclerosis Grandparent Heart problem Social History Social History Social History: Caffeine-tea Smoking status: Never smoker Second hand tobacco smoke exposure: No Alcohol intake: never Substance use: never Substance use type: does not use Lack of Transportation: No Lack of Food: Never True Current Housing: I Have Housing Concerned About Future Housing: No Difficulty Paying Gas/Electric Bills: No Difficulty Paying for Meds: No Currently Unemployed: No Education: High School Diploma/GED Difficulty w/ Childcare or Family Care: No Living arrangements: with family Occupation/Education: retired Gender identity (if verbalized by the patient): Female Agree to blood products: Yes Comments At time of signature, agree with nursing past medical, surgical, social and family history. There is no relevant family history pertinent to the presenting complaint. Exam Narrative: GENERAL: This is a well-nourished, well-developed patient, ill-appearing but no acute distress HEAD: normocephalic, atraumatic. EYES: PERRL. Sclera clear/white. Vision is grossly intact. EARS: External ears normal, auditory canals clear and without drainage, TMs normal without perforation. Hearing grossly intact. NOSE: External nose normal with no obvious nasal discharge, nares without redness, no rhinorrhea. THROAT: Mucous membranes moist, posterior pharynx clear. NECK: Neck supple, non-tender without lymphadenopathy, masses or thyromegaly. CARDIOVASCULAR: Regular rate and rhythm without murmurs, gallops, or rubs. RESPIRATORY: Coarse right lung cleary on expiration otherwise clear. Breath sounds equal bilaterally. No wheezes, rales, or rhonchi. SKIN: warm, Dry, intact with no suspicious lesions or rash, good texture and turgor. NEURO: awake, alert, and oriented to person, place and time. There were no obvious focal neurologic abnormalities. EXTREMITIES: No joint tenderness, effusion, or edema noted. Course Course Level of Care: Express Care Visit Vital Signs Vital signs: Vital Signs Temperature 37.5 C 07/30/24 10:37 Pulse Rate 105 H 07/30/24 10:37 Respiratory Rate 20 07/30/24 10:37 Blood Pressure 136/64 07/30/24 10:37 Pulse Oximetry 94 07/30/24 10:37 Temperature 37.5 C 07/30/24 10:37 Pulse Rate 105 H 07/30/24 10:37 Respiratory Rate 20 07/30/24 10:37 Blood Pressure 136/64 07/30/24 10:37 Pulse Oximetry 94 07/30/24 10:37 Reviewed Transfer Transfered to: [facility] Transportation: [facility] Transfer rationale: Patient transferred to ER after syncopal episode x2. Accepting physician: Dr. Shelton [facility] - URI/Sore Throat [facility] Narrative Medical decision making narrative: Patient had a syncopal episode x2. Patient staring, diaphoretic, unresponsive, snoring respirations x2 [id number] at Express [facility]. Heart rate dropped to 40s and oxygen 90%. Patient placed oxygen, ambulance called. Patient transferred to ER. Report given to Dr. Shelton. was alert and talking on ambulance arrival Please be advised this is a medical document. It is intended for [id number] communication. It is written in medical language and may contain unfamiliar abbreviations or verbiage. Medical documents are intended to carry relevant information, facts as evident, and the clinical opinion of the practitioner at the time of the encounter. This report may have been done utilizing a voice recognition system. Attempts have been made to correct errors. However, there may be uncorrected grammatical, spelling, and recognition errors present. The file time of this note does not necessarily represent the time of service. Discharge Plan Discharge Clinical Impression: Syncope Patient Disposition: Acute Care Hospital Condition: Stable Patient Language: Japanese Prescriptions: No Action budesonide-formoterol 160-4.5 mcg/actuation HFA aerosol inhaler 2 puff inhalation Q12H calcium carbonate-vitamin D3 600 mg-10 mcg (400 unit) capsule 1 cap PO DAILY ferrous sulfate 325 mg (65 mg iron) tablet 325 mg PO DAILY glucosamine-chondroitin 900 mg tablet 900 mg PO DAILY loratadine 10 mg tablet 10 mg PO DAILY multivitamin Tablet 1 tablet PO DAILY Ocuvite Adult 50 Plus 250 mg (90 mg-160 mg) capsule 1 cap PO DAILY rosuvastatin 20 mg tablet 20 mg PO DAILY Qty: 90 3RF cyanocobalamin (vitamin B-12) [Vitamin B-12] 100 mcg tablet 100 mcg PO DAILY guaifenesin [Mucinex] 600 mg tablet extended release 12hr 600 mg PO BID albuterol sulfate 90 mcg/actuation HFA aerosol inhaler 1 puff inhalation Q4H PRN (Reason: shortness of breath or wheezing) Qty: 8.5 2RF montelukast 10 mg tablet 10 mg PO DAILY Qty: 30 3RF omeprazole 40 mg capsule,delayed release(DR/EC) 40 mg PO DAILY Qty: 90 3RF levothyroxine 25 mcg tablet 25 mcg PO DAILY Qty: 90 1RF losartan 25 mg tablet 50 mg PO DAILY Qty: 180 1RF Follow-up/Referrals: Jaylen Purcell DO [Primary Care Provider] - Time of Disposition: 11:02
--- NOTE | 2024-07-30 11:58 | PC.NURSE ---
1050 After ausculation of lungs, patient sitting upright in chair. As RN leaving the room, patient had her head bent towards her lap and staring, patient has patent airway with respirations even. Call for help initiated. Patient seemed to become more alert and answered to her name but then began to resume the same staring and snoring respirations for short time. physical support to patient to keep upright in chair, respirations remain even. Moved from Room 2 to stretcher in room 9 at 1100.
--- NOTE | 2024-07-30 12:06 | PC.NURSE ---
1100 Patient alert, oriented x3 at this time, transferred with assist of 2 persons. EMS personnel here-patient report to them.
== END 2024-07-30 11:05 | disposition short-term general hospital (02) ==
PROVIDERS: Emergency Provider Nurse Practitioner Family; PCP Internal Medicine
DX: R55 Syncope and collapse (principal); I10 Essential (primary) hypertension; E78.5 Hyperlipidemia, unspecified; I25.10 Atherosclerotic heart disease of native coronary artery without angina pectoris; J44.9 Chronic obstructive pulmonary disease, unspecified; K21.9 Gastro-esophageal reflux disease without esophagitis
CPT/HCPCS: 99215; G0463

== ENCOUNTER 2024-07-30 11:25 | Observation (INO) | payer MEDICARE, SELFPAY ==
[2024-07-30] VITALS (19 sets, daily range): BP systolic 153–180; BP diastolic 67–89; PULSE 85–97; RESP 18–22; TEMP 36.3–36.9; O2SAT 89–99; BMI 22.3
--- NOTE | ~2024-07-30 | XR_ITS ---
XR chest 2V 07/30/2024 11:55 Indication: AP and cough. COPD. Procedure: 2 view chest Comparison: 06/25/2023 Findings: There is left basilar airspace disease which may represent atelectasis or developing pneumo akilah. Heart size normal. No focal air space disease, pulmonary edema, pleural effusion or suspected pn eumothorax. No acute osseous abnormality. Impression: 1: Left basilar airspace disease may represent atelectasis or developing pneumonia. Reviewed, dictated and finalized at location B. [employer] Impression: 1: Left basilar airspace disease may represent atelectasis or developing pneumo akilah.
--- NOTE | 2024-07-30 11:33 | ECG_ITS ---
Test Date: 2024-07-30 11:34:14 Measurements Intervals [place] Rate: 91 P: 64 SD: 173 QRS: 52 QRSD: 89 T: 69 QT: 348 QTc: 430 Interpretive Statements SINUS RHYTHM MINIMAL Q WAVES- INFERIOR LEADS BORDERLINE ECG No previous ECG available for comparison Electronically Signed On 07-30-2024 11:46:52 CHIROPRA[employer]IC DOCTOR by Smith Huston D.O.
[2024-07-30 11:51] LABS: Basophils Absolute Auto 0.1 K/mm3 (0.0-0.1); Basophils Percent Auto 0.3 % (0.2-1.2); Eosinophils Percent Auto 0.1 % (0-4.4); Hematocrit 39.6 % (37.0-47.0); Hemoglobin 13.4 g/dL (12.0-15.0); Immature Granulocyte Absolute 0.05 K/mm3 (0.00-0.031); Immature Granulocyte Percent A 0.3 % (0-0.5); Lymphocytes Absolute Auto 1.63 K/mm3 (0.9-3.2); Lymphocytes Percent Auto 11.1 % (18.3-44.2); Mean Corpuscular HGB Conc 33.8 g/dl (32-36); Mean Corpuscular Hemoglobin 29.5 pg (26-34); Mean Platelet Volume 9.1 fl (7.4-10.4); Monocytes Absolute Auto 1.3 K/mm3 (0.1-0.6); Monocytes Percent Auto 8.5 % (2.6-8.5); Neutrophils Absolute Auto 11.7 K/mm3 (1.3-6.7); Neutrophils Percent Auto 79.7 % (45.5-73.1); Platelet Count Result 267 k/mm3 (150-375); Red Blood Count 4.55 M/mm3 (4.2-5.4); Red Cell Distribution Width 12.6 % (11.5-14.5); White Blood Count 14.7 K/mm3 (4.5-10.0)
[2024-07-30 12:04] LABS: Alanine Aminotransferase 20 U/L (6-35); Albumin Level 4.2 g/dL (3.5-5.1); Alkaline Phosphatase 122 U/L (38-126); Anion Gap 10 mmol/L (4-12); Aspartate Amino Transferase 22 U/L (14-36); Bilirubin,Total 0.8 mg/dL (0.2-1.3); Blood Urea Nitrogen 9 mg/dL (7-17); Calcium 9.3 mg/dL (8.4-10.2); Carbon Dioxide 24 mmol/L (22-30); Chloride 93 mmol/L (98-107); Estimated Glomerular Filt Rate > 60; Glucose 138 mg/dL (65-110); Potassium 3.9 mmol/L (3.4-5.0); Sodium 127 mmol/L (137-145)
--- NOTE | 2024-07-30 12:13 | ED.SYNCOPE ---
HPI - Syncope General Chief Complaint: Syncope Stated Complaint: SYNCOPY Time Seen by Provider: 07/30/24 12:06 Source: EMS Mode of arrival: EMS History of Present Illness HPI narrative: 78 years old white female referred to the emergency room from urgent care because of syncope twice during examination. Patient is telling me that she been feeling lousy over the last 6 days. had similar symptoms and he is improving. Patient report history of chronic cough for the last 5 years of unknown etiology, got worse over the last few days. Currently she denies any fever chills nausea vomiting chest pain or shortness of breath. History of hypertension hyperlipidemia asthma hypothyroidism not on anti-platelet or anticoagulant medication. Patient does not smoke or drink or use drugs Patient is telling me she was sitting on the chair at the urgent care and started feeling warm and hot with lightheadedness then blacked out for less than 1 minute, came back to normal 100%. No fall Related Data Home Medications ?Medication ?Instructions ?Recorded ?Confirmed ?Last Taken ?Type antiarthritic combination no.2 900 900 mg PO DAILY 12/18/22 06/01/24 Unknown History mg tablet (glucosamine-chondroitin) budesonide-formoterol HFA 160 2 puff inhalation Q12H 12/18/22 06/01/24 Unknown History mcg-4.5 mcg/actuation aerosol inhaler calcium 600 mg (as 1 cap PO DAILY 12/18/22 06/01/24 Unknown History carbonate)-vitamin D3 10 mcg (400 unit) capsule ferrous sulfate 325 mg (65 mg 325 mg PO DAILY 12/18/22 06/01/24 Unknown History iron) tablet loratadine 10 mg tablet 10 mg PO DAILY 12/18/22 06/01/24 Unknown History swxsqtzo-nxv- 250 mg-dha 90 1 cap PO DAILY 12/18/22 06/01/24 Unknown History mg-epa 160 be-bimr-bpve-zeax capsule (Ocuvite Adult 50 Plus) multivitamin 1 tablet PO DAILY 12/18/22 06/01/24 Unknown History cyanocobalamin (vitamin B-12) 100 100 mcg PO DAILY 09/30/23 06/01/24 Unknown History mcg tablet (Vitamin B-12) guaifenesin 600 mg tablet, 600 mg PO BID 09/30/23 06/01/24 Unknown History extended release 12 hr (Mucinex) montelukast 10 mg tablet 10 mg PO QPM 07/30/24 07/30/24 07/29/24 History rosuvastatin 20 mg tablet 20 mg PO HS 07/30/24 07/30/24 07/29/24 History Allergies Allergy/AdvReac Type Severity Reaction Status Date / Time No Known Allergies Allergy Verified 07/30/24 15:09 Review of Systems Review of Systems: All systems reviewed & are unremarkable except as noted in HPI and below PMFSH Past Medical History Medical History Chronic congestion of paranasal sinus Hyperlipidemia Acquired hypothyroidism Coronary atherosclerosis due to calcified coronary lesion History of syncope Chronic asthmatic bronchitis Thyroid disorder Hypertension GERD (gastroesophageal reflux disease) COPD (chronic obstructive pulmonary disease) Asthma Surgical History Surgical History History of esophagogastroduodenoscopy (EGD) History of meniscectomy of left knee Family History Family History Father Heart problem Mother Multiple sclerosis Grandparent Heart problem Social History Social History Social History: Caffeine-tea Smoking status: Never smoker Second hand tobacco smoke exposure: No Alcohol intake: never Substance use: never Substance use type: does not use Do You Feel Safe in your Home?: Yes Lack of Transportation: No Lack of Food: Never True Current Housing: I Have Housing Concerned About Future Housing: No Difficulty Paying Gas/Electric Bills: No Difficulty Paying for Meds: No Currently Unemployed: No Education: High School Diploma/GED Difficulty w/ Childcare or Family Care: No Living arrangements: with family Occupation/Education: retired Gender identity (if verbalized by the patient): Female Spiritual care concerns: No Agree to blood products: Yes Course Vital Signs Vital signs: Vital Signs Pulse Rate 92 07/30/24 11:41 Blood Pressure 178/89 H 07/30/24 11:41 Temperature 36.9 C 07/30/24 11:43 Pulse Rate 92 07/30/24 11:43 Respiratory Rate 20 07/30/24 11:43 Blood Pressure 178/89 H 07/30/24 11:43 Pulse Oximetry 89 L 07/30/24 11:43 Oxygen Delivery Room Air 07/30/24 11:43 MDM - Syncope MDM Narrative Medical decision making narrative: Patient presents with upper respiratory viral infection like symptoms and syncope Vital signs showing blood pressure 178/89, oxygenation 89 on room air otherwise within normal limit Physical examination showing slight diffuse rhonchi bilaterally Differential diagnosis upper respiratory viral infection, bronchitis, pneumonia, Blood workup today showed WBC of 14.7, sodium 127, Chest x-ray showed pneumonia versus atelectasis Respiratory panel positive for RSV ABG on 3 L showing oxygen saturation of 95.8 patient normally not on oxygen Admit to hospitalist, diagnosis RSV, hyponatremia, pneumonia, syncope Differential Diagnosis Differential diagnosis: Likely other (As above) Medical Records Attestation: I reviewed the patient's medical records. Lab Data Attestation: I reviewed the patient's lab results. 07/30/24 11:38 07/30/24 11:38 Labs: Lab Results 07/30/24 Range/Units 11:38 WBC 14.7 H (4.5-10.0) K/mm3 RBC 4.55 (4.2-5.4) M/mm3 Hgb 13.4 (12.0-15.0) g/dL Hct 39.6 (37.0-47.0) % MCV 87.0 (80-100) fl MCH 29.5 (26-34) pg MCHC 33.8 (32-36) g/dl RDW 12.6 (11.5-14.5) % Plt Count 267 (150-375) k/mm3 MPV 9.1 (7.4-10.4) fl Immature Gran % (Auto) 0.3 (0-0.5) % Neut % (Auto) 79.7 H (45.5-73.1) % Lymph % (Auto) 11.1 L (18.3-44.2) % [place] % (Auto) 8.5 (2.6-8.5) % Eos % (Auto) 0.1 (0-4.4) % Baso % (Auto) 0.3 (0.2-1.2) % Lymph # (Auto) 1.63 (0.9-3.2) K/mm3 [place] # (Auto) 1.3 H (0.1-0.6) K/mm3 Eos # (Auto) 0.0 (0-0.3) K/mm3 Baso # (Auto) 0.1 (0.0-0.1) K/mm3 Abs Immat Gran (auto) 0.05 H (0.00-0.031) K/mm3 Absolute Neuts (auto) 11.7 H (1.3-6.7) K/mm3 Absolute Nucleated RBC 0.000 (0.0-0.012) K/mm3 Nucleated RBC % 0.0 (0.0-0.2) % Sodium 127 L (137-145) mmol/L Potassium 3.9 (3.4-5.0) mmol/L Chloride 93 L (98-107) mmol/L Carbon Dioxide 24 (22-30) mmol/L Anion Gap 10 (4-12) mmol/L BUN 9 (7-17) mg/dL Creatinine 0.52 L (0.7-1.0) mg/dL Estim Creat Clear Calc Not Reportable Estimated GFR > 60 (59 - ) Glucose 138 H (65-110) mg/dL Calcium 9.3 (8.4-10.2) mg/dL Total Bilirubin 0.8 (0.2-1.3) mg/dL AST 22 (14-36) U/L ALT 20 (6-35) U/L Alkaline Phosphatase 122 (38-126) U/L Troponin I < 0.012 (0.000-0.034) ng/mL Total Protein 8.0 (6.3-8.2) g/dL Albumin 4.2 (3.5-5.1) g/dL Influenza A (RT-PCR) Negative (Negative) Influenza B (RT-PCR) Negative (Negative) RSV (RT-PCR) Positive A (Negative) SARS-CoV-2 RNA (RT-PCR) Negative (Negative) ABG Data ABG results: 07/30/24 12:36 Puncture Site Right radial ABG pH 7.430 ABG pCO2 34.1 L ABG pO2 76.8 L ABG PO2/FiO2 Ratio 2.40 ABG HCO3 22.1 ABG O2 Saturation 95.8 ABG O2 Content 18.5 ABG Base Excess -1.5 A-a Gradient 111.5 Oxyhemoglobin 94.4 Total Hemoglobin 13.9 O2 Delivery Device Nasal cannula O2 Liters/Min 3.0 FiO2 32 Imaging Data Radiologist's impression: Impressions Chest X-Ray 07/30/24 11:57 Impression: 1: Left basilar airspace disease may represent atelectasis or developing pneumonia. ECG Data EKG #1: Attestation: I personally reviewed and interpreted this ECG as follows: ECG completion date: 07/30/24 Interpretation: Normal sinus rhythm at 91 beats per minute, borderline EKG, no previous EKG available for comparison Discharge Plan Discharge Clinical Impression: Respiratory syncytial virus (RSV), Pneumonia, Acute hyponatremia, Syncope and collapse Patient Disposition: Still a Patient Condition: Stable Additional Instructions: Admit to hospitalist Patient Language: Irish Prescriptions: No Action budesonide-formoterol 160-4.5 mcg/actuation HFA aerosol inhaler 2 puff inhalation Q12H calcium carbonate-vitamin D3 600 mg-10 mcg (400 unit) capsule 1 cap PO DAILY ferrous sulfate 325 mg (65 mg iron) tablet 325 mg PO DAILY glucosamine-chondroitin 900 mg tablet 900 mg PO DAILY loratadine 10 mg tablet 10 mg PO DAILY multivitamin Tablet 1 tablet PO DAILY Ocuvite Adult 50 Plus 250 mg (90 mg-160 mg) capsule 1 cap PO DAILY rosuvastatin 20 mg tablet 20 mg PO DAILY Qty: 90 3RF cyanocobalamin (vitamin B-12) [Vitamin B-12] 100 mcg tablet 100 mcg PO DAILY guaifenesin [Mucinex] 600 mg tablet extended release 12hr 600 mg PO BID albuterol sulfate 90 mcg/actuation HFA aerosol inhaler 1 puff inhalation Q4H PRN (Reason: shortness of breath or wheezing) Qty: 8.5 2RF montelukast 10 mg tablet 10 mg PO DAILY Qty: 30 3RF omeprazole 40 mg capsule,delayed release(DR/EC) 40 mg PO DAILY Qty: 90 3RF levothyroxine 25 mcg tablet 25 mcg PO DAILY Qty: 90 1RF losartan 25 mg tablet 50 mg PO DAILY Qty: 180 1RF Follow-up/Referrals: Jaylen Purcell DO [Primary Care Provider] -
[2024-07-30 12:15] LABS: Troponin I < 0.012 ng/mL (0.000-0.034)
--- OUTSIDE RECORDS SUMMARY | 2024-07-30 12:15 | XMS_ITS | Patient Health Summary ---
Author Organization [facility] Address [address] [place] [address] Care Team Providers Care Bill Peddler Name Role Phone Jaylen Purcell DO Primary Care Provider [phone] Note from [facility],non-owned Affiliates and Associated Physician Practices is amultiple site organization consisting of ambulatory clinics and hospital sitesin [place], [place] and [place]. This disclosure is being madepursuant to the Care Everywhere program and may not contain all information available regarding this patient. Last updated 18.[facility] Allergies No known active allergies Medications * Be aware that medications may not be up to date on this document. Alwaysverify current medications with the patient. * rosuvastatin (Crestor) 20 MG tablet Take 1 (one) tablet by mouth once daily * losartan (Cozaar) 25 MG tablet(Started 03/11/2024) Take 2 (two) tablets by mouth once daily * levothyroxine (Synthroid) 25 MCG tablet Take 1 (one) tablet by mouth once daily * omeprazole (PriLOSEC) 40 MG capsule(Started 03/22/2024) Take 1 (one) capsule by mouth once daily * budesonide-formoterol (Symbicort) 160-4.5 MCG/ACT inhaler Inhale 2 (two) puffs by mouth 2 times daily Active Problems No known active problems Immunizations * Corbiny Covd-19 Mrna Vaccine (Nucleoside Modified)(Given 04/10/2023) * FLU VACCINE TRI IIV3 SPLIT PF IM (FLUVIRIN)(Given 04/04/2005, 04/07/2003, 04/16/2002, 03/26/2001, 06/08/1999) * INFLUENZA VACCINE, HIGH-DOSE, QUADR. (FLUZONE HIGH-DOSE QUADRIVALENT; 65Y+), 0.7 ML (HD-IIV4)(Given 03/28/2022, 03/07/2021) * INFLUENZA VACCINE, QUADR. (FLUZONE; FLULAVAL; FLUARIX; AFLURIA QUADRIVALENT; 6MO+), 0.5 ML (IIV4)(Given 03/25/2023, 03/04/2020, 03/06/2014, 03/07/2013, 03/18/2012, 03/17/2011, 03/25/2010, 03/12/2009, 04/03/2008, 04/05/2007, 04/04/2006) * PNEUMOCOCCAL PPSV23(Given 08/14/2000, 06/08/1999) * Pneumococcal Pcv15 Conj(Given 08/23/2022) * RSV ABRYSVO PREG OR 60y+ 0.5mL(Given 04/12/2023) * TDAP (7yrs+)(Given 12/30/2012) * ZOSTER VACCINE, LIVE(Given 04/12/2009) * Zoster Hzv Vacc Recombinant Inj Im(Given 10/31/2017, 2017) Social History Tobacco Use Types Packs/Day Years Used Date Smoking Tobacco: Never Smokeless Tobacco: Never Tobacco Cessation:Counseling Given: Not Answered Alcohol Use Standard Drinks/Week Comments Not Currently 0 (1 standard drink = 0.6 oz pur e alcohol) Sex and Gender Information Value Date Recorded Sex Assigned at Not on file Gender Identity Not on file Sexual Orientation Not on file Last Filed Vital Signs Vital Sign Reading Time Taken Comments Blood Pressure 138/87 04/08/2024 2:18 PM CDT Pulse 87 04/08/2024 2:18 PM CDT Temperature 36.8 C (98.3 F) 04/08/2024 2:18 PM CDT Respiratory Rate - - Oxygen Saturation - - Inhaled Oxygen Concentration - - Weight 59.2 kg (130 lb 8 oz) 04/08/2024 2:18 PM CDT Height 160 cm (5' 3 ) 04/08/2024 2:18 PM CDT Body Mass Index 23.12 04/08/2024 2:18 PM CDT Procedures * [facility] NASAL ENDOSCOPY,DX(Performed 04/08/2024) Performed for Nasal congestion, Nasal obstruction, Acute cough, Nasal drainage, PND (post-nasal drip) Results * [facility] NASAL ENDOSCOPY,DX (04/08/2024 2:35 PM CDT) Narrative Alison Taylor - 04/08/2024 2:35 PM CDT Alison Taylor 04/08/2024 3:04 PM Due to the findings on physical examination, in correlation with the patient's symptomatology, the decision was made to perform a procedure today in clinic. Verbal consent obtained prior to starting procedure. Procedure note: Procedure: Rigid Nasal Endoscopy Pre Op Dx: Nasal secretions Post Op: same Anesthesia: Bilateral Nasal Cavities sprayed with Lidocaine and Neosynephrine Detail: Rigid nasal endoscopy performed bilaterally. Note: Deviated septum to the right with a contact point. No masses or lesions seen. Right interior nasal cavity showed turbinate hypertrophy, mucus stranding present. Right middle and superior meatus show pink mucosa with mucus stranding present. Sphenoethmoidal recess inspected showing mucus stranding, intact mucosa. Left interior nasal cavity showed turbinate hypertrophy, mucus stranding present. Left middle and superior meatus show pink mucosa with mucus stranding present. Sphenoethmoidal recess inspected showing mucus stranding, intact mucosa. Yordan Medina MD PROCEDURE/MINOR GONZALEZ RGICAL ORDERABLES Care Teams Bill Peddler Relationship Specialty Start Date End Date Jaylen Purcell DO [address] [place] [address] PCP - General Internal Medicine 04/08/24
--- OUTSIDE RECORDS SUMMARY | 2024-07-30 12:15 | XMS_ITS | Clinical Summary ---
Author Organization [facility] Address [address] [place] [address] Phone Care Team Providers Care Acid Filler Name Role Phone Kiara Lyle MD Primary Care Provider [phone] Allergies No known active allergies Medications levothyroxine (SYNTHROID) 25 MCG Tablet Take 25 mcg by mouth daily. 3 09/27/2017 Active losartan (COZAAR) 25 MG Tablet Take 25 mg by mouth daily. 01/20/2018 Active Lovastatin 10 MG Tablet Take 10 mg by mouth every evening. 3 12/24/2017 Active omeprazole (PRILOSEC) 20 MG CAPSULE DELAYED RELEASE Take 20 mg by mouth 2 times daily. 0 01/15/2018 Active Active Problems No known active problems Immunizations Immunization Administration Dates Next Due Covid-19, Mrna, Lnp-s, PF, 1 00 mcg/0.5 mL Dose (Moderna) 06/23/2020 Social History Tobacco Use Types Packs/Day Years Used Date Smoking Tobacco: Never Smokeless Tobacco: Never Alcohol Use Standard Drinks/Week Comments No 0 (1 standard drink = 0.6 oz pur e alcohol) Comments No Sex and Gender Information Value Date Recorded Sex Assigned at Not on file Legal Sex Female 1:34 PM [employer] Gender Identity Not on file Sexual Orientation Not on file Last Filed Vital Signs Vital Sign Reading Time Taken Comments Blood Pressure 168/83 01/22/2018 4:40 PM CDT Pulse 90 01/22/2018 4:40 PM CDT Temperature 36.4 C (97.5 F) 01/22/2018 1:58 PM CDT Respiratory Rate 16 01/22/2018 4:40 PM CDT Oxygen Saturation 96% 01/22/2018 4:40 PM CDT Inhaled Oxygen Concentration - - Weight 59 kg (130 lb) 01/22/2018 1:58 PM CDT Height 162.6 cm (5' 4 ) 01/22/2018 1:58 PM CDT Body Mass Index 22.31 01/22/2018 1:58 PM CDT Plan of Treatment Health Maintenance Due Date Last Done Comments DEXA Bone Density 1945 Hepatitis C Virus (HCV) Screening 1945 Pneumococcal Immunization (50+ years) (2 of 2 - PCV) 08/14/2001 08/14/2000, 06/08/1999 Respiratory Syncytial Virus (RSV) Immunization (Adult) (1 - 1-dose 75+ series) 2021 Influenza Immunization (#1) 02/09/202402/09, 03/04/2020, 03/12/2019, Additional history exists SARS-COV-2 Immunization ( season) 2024 10/18/2021, 04/16/2021, 07/21/2020, Additional history exists DTaP/Tdap/Td Immunization Discontinued 12/30/2012 TdaP Immunization Completed 12/30/2012 Zoster Immunization Completed 10/31/2017, 2017, 04/12/2009 Hepatitis B Immunization Aged Out No longer eligible based on patient's age to complete this topic Meningococcal Immunization (ACWY) Aged Out No longer eligible based on patient's age to complete this topic Rotavirus Immunization Aged Out No lo nger eligible based on patient's age to complete this topic Insurance MEDICARE [facility] 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
--- OUTSIDE RECORDS SUMMARY | 2024-07-30 12:15 | XMS_ITS | Referral Summary ---
Author Organization [facility] [employer] Address [address] [place] [address] Care Team Providers Care Nuclear Spectroscopist Name Role Phone Jaylen Purcell DO Primary Care Provider [phone] Source Comments [facility] [employer],non-owned Affiliates and Associated Physician Practices is amultiple site organization consisting of ambulatory clinics and hospital sitesin [place], [place], [place] and [place]. This disclosure is being madepursuant to the Care Everywhere program and may not contain all information available regarding this patient. Last updated 18.[facility] [employer] Allergies No known active allergies Medications * Be aware that medications may not be up to date on this document. Alwaysverify current medications with the patient. Medication Sig Dispensed Refills Start Date End Date Status rosuvastatin (Crestor) 20 MG tablet Take 1 (one) tablet by mouth once daily Active losartan (Cozaar) 25 MG tablet Take 2 (two) tablets by mouth once daily 03/11/2024 Active levothyroxine (Synthroid) 25 MCG tablet Take 1 (one) tablet by mouth once daily Active omeprazole (PriLOSEC) 40 MG capsule Take 1 (one) capsule by mouth once daily 03/22/2024 Active budesonide-formoterol (Symbicort) 160-4.5 MCG/ACT inhaler Inhale 2 (two) puffs by mouth 2 times daily Active Active Problems No known active problems Immunizations Name Administration Dates Next Due Comircole Covd-19 Mrna Vacci ne (Nucleoside Modified) 04/10/2023 FLU VACCINE TRI IIV3 SPLIT P F IM (FLUVIRIN) 04/04/2005,04/07/2003,04/16/2002,2000,06/08/1999 INFLUENZA VACCINE, HIGH-DOSE , QUADR. (FLUZONE HIGH-DOSE QUADRIVALENT; 65Y+), 0.7 ML (HD-IIV4) 03/28/2022,03/07/2021 INFLUENZA VACCINE, QUADR. (F LUZONE; FLULAVAL; FLUARIX; AFLURIA QUADRIVALENT; 6MO+), 0.5 ML (IIV4) 03/25/2023,03/04/2020,03/06/2014,2012,03/18/2012,03/17/2011,03/25/2010,1 ,04/03/2008,04/05/2007, 006 PNEUMOCOCCAL PPSV23 08/14/2000,06/08/1999 Pneumococcal Pcv15 Conj 08/23/2022 RSV ABRYSVO PREG OR 60y+ 0.5mL 04/12/2023 TDAP (7yrs+) 12/30/2012 ZOSTER VACCINE, LIVE 04/12/2009 Zoster Hzv Vacc Recombinant Inj Im 10/31/2017, Social History Tobacco Use Types Packs/Day Years [...] Mass Index 23.12 04/08/2024 2:18 PM CDT Plan of Treatment Not on file Care Teams Nuclear Spectroscopist Relationship Specialty Start Date End Date Jaylen Purcell DO [address] [place] [address] PCP - General Internal Medicine 04/08/24
--- OUTSIDE RECORDS SUMMARY | 2024-07-30 12:15 | XMS_ITS | Clinical Summary ---
Author Organization [facility] [employer] Address [address] [place] [address] Care Team Providers Care Corrugated Box Machine Operator Name Role Phone Jaylen Purcell DO Primary Care Provider [phone] Source Comments [facility] [employer],non-owned Affiliates and Associated Physician Practices is amultiple site organization consisting of ambulatory clinics and hospital sitesin [place], [place], [place] and [place]. This disclosure is being madepursuant to the Care Everywhere program and may not contain all information available regarding this patient. Last updated 18.[facility] [employer] Allergies No known active allergies Medications * [...] 04/08/2024 2:18 PM CDT Plan of Treatment Health Maintenance Due Date Last Done Comments MEDICARE AWV 12 MONTHS 1945 HEPATITIS C SCREENING 08/24/1964 DTAP/TDAP/TD VACCINES (2 - Td or Tdap) 12/30/2022 12/30/2012 COVID-19 VACCINE ( season) 2024 04/10/2023, 04/12/2022, 10/18/2021, Additional history exists INFLUENZA VACCINE (#1) 2024 , 03/28/2022, 03/07/2021, Additional history exists DEPRESSION SCREENING 06/10/2024 ZOSTER VACCINE Completed 10/31/2017, 08/09, 04/12/2009 BONE DENSITY TESTING Completed 10/16/2021, 02/03/20 19 PNEUMOCOCCAL VACCINE 50+ Completed 023, 08/14/2000, 06/08/1999 Respiratory Syncytial Virus (RSV) Vaccine Pt: or over 60 yrs Completed 04/12/2023 HEPATITIS B VACCINE Aged Out No longe r eligible based on patient's age to complete this topic HIB VACCINE Aged Out No longer eligi ble based on patient's age to complete this topic HPV VACCINE Aged Out No longer eligi ble based on patient's age to complete this topic MENINGOCOCCAL (Group B) VACCINE Aged Out No longer eligible based on patient's age to complete this topic MENINGOCOCCAL VACCINE Aged Out No olivier ashley eligible based on patient's age to complete this topic Care Teams Corrugated Box Machine Operator Relationship Specialty Start Date End Date Jalyen Purcell DO [address] [place] [address] PCP - General Internal Medicine 04/08/24
[2024-07-30 12:20] LABS: Influenza A QL RT-PCR Negative (Negative); Influenza B QL RT-PCR Negative (Negative); RSV RNA, RT-PCR Positive (Negative); SARS-CoV-2 RNA PCR Negative (Negative)
[2024-07-30 12:40] LABS: Alveolar/Arterial O2 Gradient 111.5 mmHg; Base Excess ABG -1.5 mEq/l (+/-2.0); Fractional Inspired Oxygen 32 %; HCO3 ABG 22.1 mEq/l (22.0-26.0); Oxygen Content ABG 18.5 %vol (16.0-22.0); Oxygen Saturation ABG 95.8 % (95.0-100.0); Oxyhemoglobin 94.4 % THb (90.0-100.0); PCO2 ABG 34.1 mmHg (35.0-45.0); PO2 ABG 76.8 mmHg (80.0-100.0); Total Hemoglobin 13.9 g/dL (12.0-18.0)
[2024-07-30 12:41] LABS: Device NASAL CANNULA; Modified Allen's Test Pass; Site Drawn RIGHT RADIAL
[2024-07-30] MEDS: SODIUM CHLORIDE 0.9% IV 1,000 ML 999 ML (12:59)
[2024-07-30] MEDS: IPRATROPIUM 0.5 MG/ALBUTEROL SULFATE 2.5 MG AMPUL.NEB 3 ML INHALATION ×2 (13:12→20:01)
[2024-07-30 13:24] LABS: Lactic Acid Reflex 0.9 mmol/L (0.7-2.0)
[2024-07-30] MEDS: methylPREDNISolone SOD SUCC 125 MG VIAL IV PUSH (13:30)
[2024-07-30 13:31] LABS: CRP 5.8 mg/dL (<1.0)
[2024-07-30] MEDS: levoFLOXacin 750 MG/D5W 150 ML 750 MG/150 ML BAG 100 MG IVPB (13:31)
--- NOTE | 2024-07-30 13:34 | P.HP_ITS ---
H&P: HPI History of Present Illness Date/Time: 07/30/24 13:34 Chief Complaint: Flu-like Symptoms, Syncope, Weakness Narrative: 78 y/o F presents here with flu-like symptoms, syncope, and weakness with PMH of hypothyroidism, coronary atherosclerosis, chronic asthmatic bronchitis, asthma, COPD, depression, hypertension, and GERD. The patient presents here from a local urgent care for further evaluation of flu -like symptoms, generalized weakness, and two syncopal episodes. She reports onset of flu-like symptoms approximately 6 days ago. Reports that her had similar symptoms and has had resolution of symptoms. She sought care today because her symptoms were not improving at a local urgent care. During your examination there she reports she began to feel hot and lightheaded. Patient had brief syncopal episode with loss of consciousness <1 minute while she was seated. She denies fall or trauma. Patient was neurologically intact upon awakening. Patient has no recollection of a second syncopal episode, however this was reported by EMS and urgent care chart available for review. Per note, syncopal episode x2 back to back. Patient's heart rate dropped into the 40s and O2 decreased to 90% during the episode. She has a hx of syncope, which was attributed to electrolyte derangements and hyponatremia x2 separate events. She denies any significant cardiac hx. Denies focal numbness, focal weakness, changes in vision, or changes in speech. Initial VS at presentation: 98.4? F, HR 92, RR 20, 178/89, and 89% on room air. Now on 3L NC at 95%. ED workup showed: WBC 14.7, no anemia, ABG showed CO2 of 34.1 and O2 76.8, sodium 127 (previously 136 on 05/26/2024), creatinine 0.52 and GFR >60, CRP 5.8, and patient tested positive for RSV. CXR concerning for a left basilar airspace disease which may represent atelectasis or developing pneumonia. Initial EKG showed sinus rhythm, rate 91, minimal Q-waves inferior leads. Review of Systems Review of Systems: All systems reviewed & are unremarkable except as noted in HPI and below [facility] Past Medical History Medical History (Updated 07/30/24 @ 18:04 by Eugenia Rucker, SOO) Hyponatremia Depression Acquired hypothyroidism Osteopenia after menopause Hyperlipidemia Coronary atherosclerosis due to calcified coronary lesion Chronic sinusitis GERD (gastroesophageal reflux disease) History of syncope Chronic asthmatic bronchitis Hypertension COPD (chronic obstructive pulmonary disease) Asthma Surgical History Surgical History History of esophagogastroduodenoscopy (EGD) History of meniscectomy of left knee Family History Family History Father Heart problem Mother Multiple sclerosis Grandparent Heart problem Social History Social History Social History: Caffeine-tea Smoking status: Never smoker Second hand tobacco smoke exposure: No Alcohol intake: never Substance use: never Substance use type: does not use Do You Feel Safe in your Home?: Yes Lack of Transportation: No Lack of Food: Never True Current Housing: I Have Housing Concerned About Future Housing: No Difficulty Paying Gas/Electric Bills: No Difficulty Paying for Meds: No Currently Unemployed: No Education: High School Diploma/GED Difficulty w/ Childcare or Family Care: No Living arrangements: with family Occupation/Education: retired Gender identity (if verbalized by the patient): Female Spiritual care concerns: No Agree to blood products: Yes Meds Home Medications and Allergies Home Medications ?Medication ?Instructions ?Recorded ?Confirmed ?Type antiarthritic combination no.2 900 900 mg PO DAILY 12/18/22 07/30/24 History mg tablet (glucosamine-chondroitin) budesonide-formoterol HFA 160 2 puff inhalation Q12H 12/18/22 07/30/24 History mcg-4.5 mcg/actuation aerosol inhaler calcium 600 mg (as 1 cap PO DAILY 12/18/22 07/30/24 History carbonate)-vitamin D3 10 mcg (400 unit) capsule ferrous sulfate 325 mg (65 mg 325 mg PO DAILY 12/18/22 07/30/24 History iron) tablet loratadine 10 mg tablet 10 mg PO DAILY 12/18/22 07/30/24 History jrlbpypo-hpc- 250 mg-dha 90 1 cap PO DAILY 12/18/22 07/30/24 History mg-epa 160 zo-tvyd-aabd-zeax capsule (Ocuvite Adult 50 Plus) multivitamin 1 tablet PO DAILY 12/18/22 07/30/24 History cyanocobalamin (vitamin B-12) 100 100 mcg PO DAILY 09/30/23 07/30/24 History mcg tablet (Vitamin B-12) guaifenesin 600 mg tablet, 600 mg PO BID 09/30/23 07/30/24 History extended release 12 hr (Mucinex) albuterol sulfate 90 mcg/actuation 1 puff inhalation Q4H PRN 06/01/24 07/30/24 Rx aerosol inhaler shortness of breath or wheezing #8.5 grams omeprazole 40 mg capsule,delayed 40 mg PO DAILY #90 caps 06/22/24 07/30/24 Rx release levothyroxine 25 mcg tablet 25 mcg PO DAILY #90 tabs 07/16/24 07/30/24 Rx losartan 25 mg tablet 50 mg (2 x 25 mg) PO DAILY #180 07/16/24 07/30/24 Rx tabs montelukast 10 mg tablet 10 mg PO QPM 07/30/24 07/30/24 History rosuvastatin 20 mg tablet 20 mg PO HS 07/30/24 07/30/24 History Allergies Allergy/AdvReac Type Severity Reaction Status Date / Time No Known Allergies Allergy Verified 07/30/24 15:09 Vital Signs Vital Signs - 24 hr 07/30/24 11:41 07/30/24 11:41 07/30/24 11:43 Temperature 98.4 F Pulse Rate 92 92 92 Respiratory Rate 20 Blood Pressure 178/89 H 173/83 H 178/89 H Pulse Oximetry 89 L Oxygen Delivery Room Air Oxygen Flow Rate 07/30/24 13:12 07/30/24 13:18 07/30/24 13:19 Temperature Pulse Rate 91 92 Respiratory Rate 18 18 Blood Pressure Pulse Oximetry 95 Oxygen Delivery Nasal Cannula Oxygen Flow Rate 3 Exam Const: General: comfortable and no acute distress Other: , female, nontoxic appearance HENMT: Face/Nose/Sinus: Normal nares present Mouth: Yes moist mucous membranes Eyes: General: appearance normal, both eyes and all related structures Sclera: sclerae normal Pupils: Equal, round and reactive pupils present EOM: EOMs intact bilaterally Resp: Effort & Inspection: normal respiratory effort Other: crackles in right lung base, left absent/diminished at base. no wheezing. Cardio: Rate: regular rate Rhythm: regular rhythm Other: S1-S2 present without murmur, rub, ectopy GI: Other: Abdomen soft, nondistended, nontender. Skin: General skin exam: normal color and no rashes or lesions noted Wounds: no wounds Neuro: Speech: normal speech Motor exam (neuro): 5/5 motor strength present throughout Sensory Exam: normal sensation Other: A&O x4. Extrem: General: normal to inspection Psych: Mental Status: mental status grossly normal Affect: normal affect Other: Good insight and judgment, pleasant H&P: Results Labs Labs: Short CBC 07/30/24 Range/Units 11:38 WBC 14.7 H (4.5-10.0) K/mm3 Hgb 13.4 (12.0-15.0) g/dL Hct 39.6 (37.0-47.0) % Plt Count 267 (150-375) k/mm3 BMP 07/30/24 11:38 Sodium 127 L Potassium 3.9 Chloride 93 L Carbon Dioxide 24 BUN 9 Creatinine 0.52 L Glucose 138 H Calcium 9.3 Cardiac Enzymes 07/30/24 Range/Units 11:38 Troponin I < 0.012 (0.000-0.034) ng/mL Liver Function 07/30/24 Range/Units 11:38 Total Bilirubin 0.8 (0.2-1.3) mg/dL AST 22 (14-36) U/L ALT 20 (6-35) U/L Alkaline Phosphatase 122 (38-126) U/L Albumin 4.2 (3.5-5.1) g/dL Assessment and Plan Assessment and plan (1) Sepsis: Qualifiers: Acute respiratory failure type: with hypoxia Sepsis acute organ dysfunction status: with acute organ dysfunction Sepsis type: sepsis due to unspecified organism Severe sepsis acute organ dysfunction type: acute respiratory failure Severe sepsis shock status: without septic shock Qualified Code(s): A41.9 - Sepsis, unspecified organism; R65.20 - Severe sepsis without septic shock; J96.01 - Acute respiratory failure with hypoxia Code(s): A41.9 - Sepsis, unspecified organism Status: Acute Assessment and Plan: - meets SIRS criteria: HR, WBC. -hypotension, +hypoxia. - lactic acid: 0.9 - 30 mL/kg = 1.8 L - suspected source: Pneumonia - started on levaquin on 07/30 - blood cultures drawn on 07/30, follow - UA ordered - CXR: Left basilar airspace disease may represent atelectasis or developing pneumonia. - monitor hemodynamic stability (2) Syncope: Qualifiers: Syncope type: unspecified Qualified Code(s): R55 - Syncope and collapse Code(s): R55 - Syncope and collapse Status: Acute Assessment and Plan: - EKG, initial: Sinus rhythm, rate 91, minimal Q-waves inferior leads - CXR c/f pneumonia - A/Ox4, denies focal deficits - troponin: <0.012, trend - WBC 14.7, Hgb 13.4, lactic 0.9 - viral PCR: +RSV - UA ordered - obtain orthostatics - telemetry monitoring Previous hx of syncope around 2019 and 2021 was attributed to hyponatremia. Suspect occurrence today due to same, sodium 127. Cannot exclude hypoxia and pneumonia as confounding/attributing factors. (3) Respiratory syncytial virus (RSV): Qualifiers: RSV infection type: pneumonia Qualified Code(s): J12.1 - Respiratory syncytial virus pneumonia Code(s): B33.8 - Other specified viral diseases Status: Acute Assessment and Plan: - tested positive for RSV on 07/30/24 - CXR c/f pna, see below - supportive care: Tylenol p.r.n. Mucinex akilah DuoNeb p.r.n. Tessalon Perles p.r.n. Lozenge p.r.n. Methylprednisolone akilah - monitor WBC/CBC - currently requiring increased supplemental O2, continue to maintain O2 sat greater than 92%. Wean as tolerated. (4) Pneumonia: Qualifiers: Laterality: left Lung location: lower lobe of lung Pneumonia type: due to unspecified organism Qualified Code(s): J18.9 - Pneumonia, unspecified organism Code(s): J18.9 - Pneumonia, unspecified organism Status: Acute Assessment and Plan: - CXR: LLL pna - risk factors and complicating factors: RSV - started on CAP tx: Levaquin on 07/30 - MRSA PCR and sputum culture - supportive care - continue supplemental O2to maintain O2 sat greater than 92% (5) Acute hyponatremia: Code(s): E87.1 - Hypo-osmolality and hyponatremia Status: Acute Assessment and Plan: - Na 127 - previous range: 132-139 - IV fluids: NS at 100 mL/hr - arrived neurologically intact, did have 2 syncopal episodes which has previously been attributed to hyponatremia. - trend (6) Hypertension: Qualifiers: Hypertension type: primary hypertension Qualified Code(s): I10 - Essential (primary) hypertension Code(s): I10 - Essential (primary) hypertension Status: Chronic Assessment and Plan: - chronic, currently 180/89 - continue home medications: Losartan - monitor Plan Diet: Heart healthy GI Prophylaxis: not currently indicated DVT Prophylaxis: Lovenox Lines: Peripheral Code Status: Full code Quality VTE Prophylaxis VTE prophylaxis: pharmacologic ordered Hospitalist MIPS Advance Care Plan I have confirmed that the patient's Advanced Care Plan is present, code status is documented, or surrogate decision maker is listed in patient medical record.: Yes Medication Reconciliation I have utilized all available resources to obtain, update and review the patients current medications (includes all prescriptions, OTC, herbals, cannabis, and nutritional supplements).: Yes
--- NOTE | 2024-07-30 14:52 | ADMGEN ---
This patient, Teressa Jaquez, was admitted to Medical Room 348-01. Patient/family oriented to hospital policies and general routines including ID bracelet, bed and alarms, visiting hours, pain management, procedures, bathroom and other care routines, personal items, smoking policy, room service/diet, and visiting hours. Information on how to activate the Rapid Response Team has been discussed. Patient/Family are encouraged to report perceived risks to care and to ask questions if they do not understand what they are told or what they should do.
[2024-07-30] MEDS: SODIUM CHLORIDE 0.9% IV 1,000 ML 100 ML IV CONT (15:04)
[2024-07-30 15:33] LABS: Add Urine Microscopic? YES; Appearance Urine Clear (Clear); Bacteria Urine None Seen /hpf; Bilirubin Urine Negative (Negative); Blood Urine Trace (Negative); Color Urine Yellow (Yellow); Glucose Urine UA Negative (Negative); Ketones Urine 1+ mg/dL (Negative); Leukocyte Esterase Ur Negative LEU/UL (Negative); Nitrate Urine Negative (Negative); Non Pathogenic Casts 0-2; Protein Urine Trace mg/dL (Negative); Specific Grav Ur 1.007 (1.001-1.035); Squamous Epithelial Cell Urine None Seen /hpf (Few); Urobilinogen Urine 0.2 mg/dL (<2.0); WBC Urine 0-5 /hpf (0-3)
[2024-07-30] MEDS: methylPREDNISolone SOD SUCC 125 MG VIAL 60 MG IV PUSH (17:40)
--- NOTE | 2024-07-30 18:19 | PC.NURSE ---
On 07/30/24, the student, Anne Vasquez, provided care and completed [facility] documentation on this patient. I have reviewed the student's documentation and agree with the findings.
[2024-07-30 19:25] LABS: Anion Gap 9 mmol/L (4-12); Blood Urea Nitrogen 8 mg/dL (7-17); Carbon Dioxide 24 mmol/L (22-30); Chloride 98 mmol/L (98-107); Estimated CRCL calculation 69 ml/min; Estimated Glomerular Filt Rate > 60; Glucose 222 mg/dL (65-110); Potassium 3.9 mmol/L (3.4-5.0); Sodium 131 mmol/L (137-145)
[2024-07-30] MEDS: FLUTICASONE/SALMETEROL 115-21 MCG INHALER 1 PUFF 2 PUFF INHALATION (20:00)
[2024-07-30] MEDS: guaiFENesin 12 HR 600 MG TABCR PO (20:40)
[2024-07-30] MEDS: ROSUVASTATIN 20 MG TABLET PO (20:40)
[2024-07-30] MEDS: MONTELUKAST SODIUM 10 MG TABLET PO (20:41)
[2024-07-31] VITALS (8 sets, daily range): BP systolic 152; BP diastolic 72; PULSE 82–98; RESP 18; TEMP 36.2; O2SAT 90–92
[2024-07-31] MEDS: methylPREDNISolone SOD SUCC 125 MG VIAL 60 MG IV PUSH ×3 (00:10→11:56)
[2024-07-31] MEDS: SODIUM CHLORIDE 0.9% IV 1,000 ML 100 ML IV CONT (00:14)
[2024-07-31 05:58] LABS: Anion Gap 8 mmol/L (4-12); Blood Urea Nitrogen 9 mg/dL (7-17); Calcium 9.1 mg/dL (8.4-10.2); Carbon Dioxide 24 mmol/L (22-30); Chloride 100 mmol/L (98-107); Estimated CRCL calculation 69 ml/min; Estimated Glomerular Filt Rate > 60; Glucose 161 mg/dL (65-110); Sodium 132 mmol/L (137-145)
[2024-07-31 06:15] LABS: Basophils Percent Auto 0.1 % (0.2-1.2); Hematocrit 35.2 % (37.0-47.0); Hemoglobin 11.7 g/dL (12.0-15.0); Immature Granulocyte Absolute 0.06 K/mm3 (0.00-0.031); Immature Granulocyte Percent A 0.5 % (0-0.5); Lymphocytes Absolute Auto 1.05 K/mm3 (0.9-3.2); Lymphocytes Percent Auto 9.3 % (18.3-44.2); Mean Corpuscular HGB Conc 33.2 g/dl (32-36); Mean Corpuscular Hemoglobin 28.9 pg (26-34); Mean Corpuscular Volume 86.9 fl (80-100); Mean Platelet Volume 9.1 fl (7.4-10.4); Monocytes Absolute Auto 0.2 K/mm3 (0.1-0.6); Neutrophils Percent Auto 88.1 % (45.5-73.1); Platelet Count Result 253 k/mm3 (150-375); Red Blood Count 4.05 M/mm3 (4.2-5.4); Red Cell Distribution Width 12.3 % (11.5-14.5); White Blood Count 11.4 K/mm3 (4.5-10.0)
[2024-07-31 06:17] LABS: Alanine Aminotransferase 18 U/L (6-35); Albumin Level 3.5 g/dL (3.5-5.1); Alkaline Phosphatase 89 U/L (38-126); Anion Gap 9 mmol/L (4-12); Aspartate Amino Transferase 18 U/L (14-36); Bilirubin,Total 0.4 mg/dL (0.2-1.3); Blood Urea Nitrogen 10 mg/dL (7-17); Calcium 8.9 mg/dL (8.4-10.2); Carbon Dioxide 22 mmol/L (22-30); Chloride 101 mmol/L (98-107); Estimated CRCL calculation 66 ml/min; Estimated Glomerular Filt Rate > 60; Glucose 165 mg/dL (65-110); Potassium 3.9 mmol/L (3.4-5.0); Sodium 132 mmol/L (137-145)
[2024-07-31] MEDS: LEVOTHYROXINE SODIUM 25 MCG TABLET PO (06:18)
[2024-07-31] MEDS: LORATADINE 10 MG TABLET PO (08:23)
[2024-07-31] MEDS: OPTI-GEN TAB 1 TABLET PO (08:23)
[2024-07-31] MEDS: LOSARTAN POTASSIUM 25 MG TABLET 50 MG PO (08:23)
[2024-07-31] MEDS: PANTOPRAZOLE 40 MG TABLET PO (08:23)
[2024-07-31] MEDS: MULTIVITAMINS THERAPEUTIC TAB (*BKC) 1 TABLET PO (08:23)
[2024-07-31] MEDS: FERROUS SULFATE 325 MG TABLET DR PO (08:23)
[2024-07-31] MEDS: ENOXAPARIN 40 MG/0.4 ML SYRINGE SUB-Q (08:24)
[2024-07-31] MEDS: CALCIUM/VITAMIN D 500 MG/5 MCG (200 I.U.) TABLET PO (08:24)
[2024-07-31] MEDS: guaiFENesin 12 HR 600 MG TABCR PO (08:24)
[2024-07-31] MEDS: levoFLOXacin 750 MG/D5W 150 ML 750 MG/150 ML BAG 100 MG IVPB (08:24)
--- NOTE | 2024-07-31 09:08 | PM.IMPN ---
Progress Note: A&P Assessment and Plan (1) Sepsis: Qualifiers: Sepsis type: sepsis due to unspecified organism Sepsis acute organ dysfunction status: with acute organ dysfunction Severe sepsis acute organ dysfunction type: acute respiratory failure Acute respiratory failure type: with hypoxia Severe sepsis shock status: without septic shock Qualified Code(s): A41.9 - Sepsis, unspecified organism; R65.20 - Severe sepsis without septic shock; J96.01 - Acute respiratory failure with hypoxia Code(s): A41.9 - Sepsis, unspecified organism Status: Acute Assessment and Plan: - meets SIRS criteria: HR, WBC. -hypotension, +hypoxia. - lactic acid: 0.9 - 30 mL/kg = 1.8 L - suspected source: Pneumonia - started on levaquin on 07/30 - blood cultures drawn on 07/30, follow - UA ordered - CXR: Left basilar airspace disease may represent atelectasis or developing pneumonia. - monitor hemodynamic stability (2) Syncope: Qualifiers: Syncope type: unspecified Qualified Code(s): R55 - Syncope and collapse Code(s): R55 - Syncope and collapse Status: Inactive Assessment and Plan: - EKG, initial: Sinus rhythm, rate 91, minimal Q-waves inferior leads - CXR c/f pneumonia - A/Ox4, denies focal deficits - troponin: <0.012, trend - WBC 14.7, Hgb 13.4, lactic 0.9 - viral PCR: +RSV - UA ordered - obtain orthostatics - telemetry monitoring Previous hx of syncope around 2019 and 2021 was attributed to hyponatremia. Suspect occurrence today due to same, sodium 127. Cannot exclude hypoxia and pneumonia as confounding/attributing factors. (3) Respiratory syncytial virus (RSV): Qualifiers: RSV infection type: pneumonia Qualified Code(s): J12.1 - Respiratory syncytial virus pneumonia Code(s): B33.8 - Other specified viral diseases Status: Acute Assessment and Plan: - tested positive for RSV on 07/30/24 - CXR c/f pna, see below - supportive care: Tylenol p.r.n. Mucinex akilah DuoNeb p.r.n. Tessalon Perles p.r.n. Lozenge p.r.n. Methylprednisolone [facility] - monitor WBC/CBC - currently requiring increased supplemental O2, continue to maintain O2 sat greater than 92%. Wean as tolerated. (4) Pneumonia: Qualifiers: Laterality: left Lung location: lower lobe of lung Pneumonia type: due to unspecified organism Qualified Code(s): J18.9 - Pneumonia, unspecified organism Code(s): J18.9 - Pneumonia, unspecified organism Status: Acute Assessment and Plan: - CXR: LLL pna - risk factors and complicating factors: RSV - started on CAP tx: Levaquin on 07/30 - MRSA PCR and sputum culture - supportive care - continue supplemental O2to maintain O2 sat greater than 92% (5) Acute hyponatremia: Code(s): E87.1 - Hypo-osmolality and hyponatremia Status: Acute Assessment and Plan: - Na 127 - previous range: 132-139 - IV fluids: NS at 100 mL/hr - arrived neurologically intact, did have 2 syncopal episodes which has previously been attributed to hyponatremia. - trend (6) Hypertension: Qualifiers: Hypertension type: primary hypertension Qualified Code(s): I10 - Essential (primary) hypertension Code(s): I10 - Essential (primary) hypertension Status: Chronic Assessment and Plan: - chronic, currently 180/89 - continue home medications: Losartan - monitor Plan Diet: Heart healthy GI Prophylaxis: not currently indicated DVT Prophylaxis: Lovenox Lines: Peripheral Code Status: Full code Subjective Date/time seen: 07/31/24 09:08 Exam Narrative: crackles in right lung base, left absent/dimisined at base. no wheezing. exam fine. Const: General: comfortable and no acute distress Other: , female, nontoxic appearance HENMT: Face/Nose/Sinus: Normal nares present Mouth: Yes moist mucous membranes Eyes: General: appearance normal, both eyes and all related structures Sclera: sclerae normal Pupils: Equal, round and reactive pupils present EOM: EOMs intact bilaterally Resp: Effort & Inspection: normal respiratory effort Other: crackles in right lung base, left absent/diminished at base. no wheezing. Cardio: Rate: regular rate Rhythm: regular rhythm Other: S1-S2 present without murmur, rub, ectopy GI: Other: Abdomen soft, nondistended, nontender. Skin: General skin exam: normal color and no rashes or lesions noted Wounds: no wounds Neuro: Cranial nerves: Yes Equal, round and reactive pupils present Speech: normal speech Motor exam (neuro): 5/5 motor strength present throughout Sensory Exam: normal sensation Other: A&O x4. Extrem: General: normal to inspection Psych: Mental Status: mental status grossly normal Affect: normal affect Other: Good insight and judgment, pleasant Objective Data Vital Signs Vital Signs: Vital Signs - 24 hr 07/30/24 11:32 07/30/24 11:41 07/30/24 11:41 Temperature Pulse Rate 92 92 92 Respiratory Rate 20 Blood Pressure 173/83 H 178/89 H 173/83 H Pulse Oximetry 95 Oxygen Delivery Oxygen Flow Rate 07/30/24 11:43 07/30/24 12:29 07/30/24 12:58 Temperature 98.4 F 97.9 F Pulse Rate 92 87 86 Respiratory Rate 20 20 20 Blood Pressure 178/89 H 164/80 H 168/82 H Pulse Oximetry 89 L 95 94 Oxygen Delivery Room Air Oxygen Flow Rate 07/30/24 13:00 07/30/24 13:12 07/30/24 13:18 Temperature 97.8 F Pulse Rate 85 91 92 Respiratory Rate 21 H 18 18 Blood Pressure 163/79 H Pulse Oximetry 94 Oxygen Delivery Oxygen Flow Rate 07/30/24 13:19 07/30/24 13:30 07/30/24 14:54 Temperature 97.4 F L Pulse Rate 97 91 Respiratory Rate 22 H 20 Blood Pressure 180/89 H 153/67 H Pulse Oximetry 95 99 98 Oxygen Delivery Nasal Cannula Oxygen Flow Rate 3 07/30/24 16:05 07/30/24 17:46 07/30/24 20:00 Temperature Pulse Rate 91 85 Respiratory Rate Blood Pressure Pulse Oximetry 93 Oxygen Delivery Room Air Oxygen Flow Rate 07/30/24 20:04 07/30/24 20:08 07/30/24 20:12 Temperature Pulse Rate 88 89 Respiratory Rate 18 18 Blood Pressure Pulse Oximetry 90 Oxygen Delivery Room Air Oxygen Flow Rate 07/30/24 20:30 07/30/24 20:31 07/31/24 00:00 Temperature 97.3 F L Pulse Rate 91 88 Respiratory Rate 18 Blood Pressure 156/69 H Pulse Oximetry 92 Oxygen Delivery Oxygen Flow Rate 07/31/24 02:15 07/31/24 02:25 07/31/24 04:00 Temperature Pulse Rate 84 84 98 Respiratory Rate 18 18 Blood Pressure Pulse Oximetry Oxygen Delivery Oxygen Flow Rate 07/31/24 06:00 07/31/24 08:25 Temperature 97.2 F L Pulse Rate 91 Respiratory Rate 18 Blood Pressure 152/72 H Pulse Oximetry 92 Oxygen Delivery Room Air Oxygen Flow Rate Intake/Output Intake/Output: Intake & Output 07/28/24 07/29/24 07/30/24 07/31/24 23:59 23:59 23:59 23:59 Intake Total 1590 1166.7 Output Total 1450 Balance 140 1166.7 Meds/Results Medications: Active Medications Generic Name Dose Route Start Last Admin Trade Name Freq PRN Reason Stop Dose Admin Acetaminophen 650 mg 07/30/24 13:12 Acetaminophen 325 Mg Tablet PO Q4H PRN Mild Pain (1-3) or Fever Albuterol 1 puff 07/30/24 18:07 Albuterol Sulfate (*Sp) Aerosol 1 Puff INHALATION Q4H PRN shortness of breath or wheezing Albuterol/Ipratropium 3 ml 07/30/24 14:00 07/30/24 20:01 Ipratropium 0.5 Mg/Albuterol Sulfate 2.5 Mg Ampul.Neb 3 Ml INHALATION 3 ml Q6HRT AKILAH Administration Benzocaine 1 lozenge 07/30/24 13:55 Benzocaine/Menthol (*Bkc) 18 Ea Lozenge PO PRN PRN Sore Throat Benzonatate 100 mg 07/30/24 13:55 Benzonatate 100 Mg Capsule PO TID PRN Cough Calcium Carbonate 500 mg 07/31/24 09:00 07/31/24 08:24 Calcium/Vitamin D 500 Mg/5 Mcg (200 I.U.) Tablet PO 500 mg DAILY AKILAH Administration Enoxaparin Sodium 40 mg 07/31/24 09:00 07/31/24 08:24 Enoxaparin 40 Mg/0.4 Ml Syringe SUB-Q 40 mg DAILY AKILAH Administration Ferrous Sulfate 325 mg 07/31/24 09:00 07/31/24 08:23 Ferrous Sulfate [address] PO 325 mg DAILY AKILAH Administration Guaifenesin 600 mg 07/30/24 21:00 07/31/24 08:24 Guaifenesin 12 Hr 600 Mg Tabcr PO 600 mg Q12HR AKILAH Administration Levofloxacin/Dextrose 750 mg in 150 mls @ 100 mls/hr 07/31/24 09:00 07/31/24 08:24 Levaquin 750 Mg/D5w 150 Ml IVPB 100 mls/hr Q24H AKILAH Administration Sodium Chloride 1,000 mls @ 100 mls/hr 07/30/24 13:15 07/31/24 00:14 Normal Saline Iv IV CONT 100 mls/hr .Q10H AKILAH Administration Levothyroxine Sodium 25 mcg 07/31/24 06:30 07/31/24 06:18 Levothyroxine Sodium 25 Mcg Tablet PO 25 mcg DAILY@0630 AKILAH Administration Loratadine 10 mg 07/31/24 09:00 07/31/24 08:23 Loratadine 10 Mg Tablet PO 10 mg DAILY AKILAH Administration Losartan Potassium 50 mg 07/31/24 09:00 07/31/24 08:23 Losartan Potassium 25 Mg Tablet PO 50 mg DAILY AKILAH Administration Methylprednisolone Sodium Succinate 60 mg 07/30/24 18:00 07/31/24 06:18 Methylprednisolone Sod Succ 125 Mg Vial IV PUSH 60 mg Q6HR AKILAH Administration Miscellaneous Information 1 each 07/31/24 00:01 B12 100 Mcg Nonform; Pharmacy Has 250 Mcg If Ok To Switch XX 08/30/24 00:00 CLARIFY AKILAH Montelukast Sodium 10 mg 07/30/24 18:25 07/30/24 20:41 Montelukast Sodium 10 Mg Tablet PO 10 mg QPM AKILAH Administration Multivitamins Therapeutic 1 tablet 07/31/24 09:00 07/31/24 08:23 Multivitamins Therapeutic Tab (*Bkc) PO 1 tablet DAILY AKILAH Administration Multivitamins/Minerals 1 tablet 07/31/24 09:00 07/31/24 08:23 Opti-Gen Tab PO 1 tablet DAILY AKILAH Administration Non-Formulary Medication 100 mcg 07/31/24 09:00 Cyanocobalamin (Vitamin B-12) [Vitamin B-12] PO 08/30/24 08:59 DAILY AKILAH Pantoprazole Sodium 40 mg 07/31/24 09:00 07/31/24 08:23 Pantoprazole 40 Mg Tablet PO 40 mg BID AKILAH Administration Rosuvastatin Calcium 20 mg 07/30/24 21:00 07/30/24 20:40 Rosuvastatin 20 Mg Tablet PO 20 mg HS AKILAH Administration Fluticasone/Salmeterol 2 puff 07/30/24 20:00 07/30/24 20:00 Fluticasone/Salmeterol 115-21 Mcg Inhaler 1 Puff INHALATION 2 puff Q12HRT AKILAH Administration Radiology Results: ITS Impressions Chest X-Ray 07/30/24 11:57 Impression: 1: Left basilar airspace disease may represent atelectasis or developing pneumonia. Labs Labs: Laboratory Results - last 24 hr 07/30/24 07/30/24 07/30/24 11:38 12:36 13:08 WBC 14.7 H RBC 4.55 Hgb 13.4 Hct 39.6 MCV 87.0 MCH 29.5 MCHC 33.8 RDW 12.6 Plt Count 267 MPV 9.1 Immature Gran % (Auto) 0.3 Neut % (Auto) 79.7 H Lymph % (Auto) 11.[address] [place] % (Auto) 8.5 Eos % (Auto) 0.1 Baso % (Auto) 0.3 Lymph # (Auto) 1.63 [place] # (Auto) 1.3 H Eos # (Auto) 0.0 Baso # (Auto) 0.1 Abs Immat Gran (auto) 0.05 H Absolute Neuts (auto) 11.7 H Absolute Nucleated RBC 0.000 Nucleated RBC % 0.0 Puncture Site Right radial ABG pH 7.430 ABG pCO2 34.1 L ABG pO2 76.8 L ABG PO2/FiO2 Ratio 2.40 ABG HCO3 22.1 ABG O2 Saturation 95.8 ABG O2 Content 18.5 ABG Base Excess -1.5 A-a Gradient 111.5 Oxyhemoglobin 94.4 Total Hemoglobin 13.9 O2 Delivery Device Nasal cannula O2 Liters/Min 3.0 FiO2 32 Sodium 127 L Potassium 3.9 Chloride 93 L Carbon Dioxide 24 Anion Gap 10 BUN 9 Creatinine 0.52 L Estim Creat Clear Calc Not Reportable Estimated GFR > 60 Glucose 138 H Lactic Acid 0.9 Calcium 9.3 Total Bilirubin 0.8 AST 22 ALT 20 Alkaline Phosphatase 122 Troponin I < 0.012 C-Reactive Protein 5.8 H Total Protein 8.0 Albumin 4.2 Urine Color Urine Appearance Urine pH Ur Specific [place] Urine Protein Urine Glucose (UA) Urine Ketones Ur Blood (Man) Urine Nitrate Urine Bilirubin Urine Urobilinogen Leukocyte Esterase Rfl Urine RBC Urine WBC Ur Squamous Epith Cells Urine Bacteria Urine Casts Influenza A (RT-PCR) Negative Influenza B (RT-PCR) Negative RSV (RT-PCR) Positive A SARS-CoV-2 RNA (RT-PCR) Negative 07/30/24 07/30/24 07/31/24 15:17 19:11 01:07 WBC RBC Hgb Hct MCV MCH MCHC RDW Plt Count MPV Immature Gran % (Auto) Neut % (Auto) Lymph % (Auto) [place] % (Auto) Eos % (Auto) Baso % (Auto) Lymph # (Auto) [place] # (Auto) Eos # (Auto) Baso # (Auto) Abs Immat Gran (auto) Absolute Neuts (auto) Absolute Nucleated RBC Nucleated RBC % Puncture Site ABG pH ABG pCO2 ABG pO2 ABG PO2/FiO2 Ratio ABG HCO3 ABG O2 Saturation ABG O2 Content ABG Base Excess A-a Gradient Oxyhemoglobin Total Hemoglobin O2 Delivery Device O2 Liters/Min FiO2 Sodium 131 L 132 L Potassium 3.9 4.0 Chloride 98 100 Carbon Dioxide 24 24 Anion Gap 9 8 BUN 8 9 Creatinine 0.47 L 0.47 L Estim Creat Clear Calc 69 69 Estimated GFR > 60 > 60 Glucose 222 H 161 H Lactic Acid Calcium 9.0 9.1 Total Bilirubin AST ALT Alkaline Phosphatase Troponin I C-Reactive Protein Total Protein Albumin Urine Color Yellow Urine Appearance Clear Urine pH 7.0 Ur Specific [place] 1.007 Urine Protein Trace Urine Glucose (UA) Negative Urine Ketones 1+ H Ur Blood (Man) Trace Urine Nitrate Negative Urine Bilirubin Negative Urine Urobilinogen 0.2 Leukocyte Esterase Rfl Negative Urine RBC 3-5 H Urine WBC 0-5 Ur Squamous Epith Cells None seen Urine Bacteria None seen Urine Casts 0-2 Influenza A (RT-PCR) Influenza B (RT-PCR) RSV (RT-PCR) SARS-CoV-2 RNA (RT-PCR) 07/31/24 05:53 WBC 11.4 H RBC 4.05 L Hgb 11.7 L Hct 35.2 L MCV 86.9 MCH 28.9 MCHC 33.2 RDW 12.3 Plt Count 253 MPV 9.1 Immature Gran % (Auto) 0.5 Neut % (Auto) 88.1 H Lymph % (Auto) 9.[address] [place] % (Auto) 2.0 L Eos % (Auto) 0.0 Baso % (Auto) 0.1 L Lymph # (Auto) 1.05 [place] # (Auto) 0.2 Eos # (Auto) 0.0 Baso # (Auto) 0.0 Abs Immat Gran (auto) 0.06 H Absolute Neuts (auto) 10.0 H Absolute Nucleated RBC 0.000 Nucleated RBC % 0.0 Puncture Site ABG pH ABG pCO2 ABG pO2 ABG PO2/FiO2 Ratio ABG HCO3 ABG O2 Saturation ABG O2 Content ABG Base Excess A-a Gradient Oxyhemoglobin Total Hemoglobin O2 Delivery Device O2 Liters/Min FiO2 Sodium 132 L Potassium 3.9 Chloride 101 Carbon Dioxide 22 Anion Gap 9 BUN 10 Creatinine 0.49 L Estim Creat Clear Calc 66 Estimated GFR > 60 Glucose 165 H Lactic Acid Calcium 8.9 Total Bilirubin 0.4 AST 18 ALT 18 Alkaline Phosphatase 89 Troponin I C-Reactive Protein Total Protein 7.0 Albumin 3.5 Urine Color Urine Appearance Urine pH Ur Specific [place] Urine Protein Urine Glucose (UA) Urine Ketones Ur Blood (Man) Urine Nitrate Urine Bilirubin Urine Urobilinogen Leukocyte Esterase Rfl Urine RBC Urine WBC Ur Squamous Epith Cells Urine Bacteria Urine Casts Influenza A (RT-PCR) Influenza B (RT-PCR) RSV (RT-PCR) SARS-CoV-2 RNA (RT-PCR)
[2024-07-31] MEDS: FLUTICASONE/SALMETEROL 115-21 MCG INHALER 1 PUFF 2 PUFF INHALATION (09:15)
[2024-07-31] MEDS: IPRATROPIUM 0.5 MG/ALBUTEROL SULFATE 2.5 MG AMPUL.NEB 3 ML INHALATION (09:15)
--- NOTE | 2024-07-31 10:43 | P.DS_ITS ---
DS: Admitting Diagnosis Discharge Date 07/31/2024 Admitting Diagnosis Hyponatremia, Developing Pneumonia, RSV + DS: Discharge Diagnosis Discharge Diagnosis (1) Sepsis: Qualifiers: Acute respiratory failure type: with hypoxia Sepsis acute organ dysfunction status: with acute organ dysfunction Sepsis type: sepsis due to unspecified organism Severe sepsis acute organ dysfunction type: acute respiratory failure Severe sepsis shock status: without septic shock Qualified Code(s): A41.9 - Sepsis, unspecified organism; R65.20 - Severe sepsis without septic shock; J96.01 - Acute respiratory failure with hypoxia Code(s): A41.9 - Sepsis, unspecified organism Status: Acute Assessment and Plan: - meets SIRS criteria: HR, WBC. -hypotension, +hypoxia. - lactic acid: 0.9 - 30 mL/kg = 1.8 L - suspected source: Pneumonia - started on levaquin on 07/30 - blood cultures drawn on 07/30, follow - UA normal - CXR: Left basilar airspace disease may represent atelectasis or developing pneumonia. - monitor hemodynamic stability (2) Syncope: Qualifiers: Syncope type: unspecified Qualified Code(s): R55 - Syncope and collapse Code(s): R55 - Syncope and collapse Status: Inactive Assessment and Plan: - EKG, initial: Sinus rhythm, rate 91, minimal Q-waves inferior leads - CXR c/f pneumonia - A/Ox4, denies focal deficits - troponin: <0.012, trend - WBC 14.7, Hgb 13.4, lactic 0.9 - viral PCR: +RSV - UA ordered - obtained orthostatics - negative - telemetry monitoring - NSR Previous hx of syncope around 2019 and 2021 was attributed to hyponatremia. Suspect occurrence today due to same, sodium 127. Cannot exclude hypoxia and pneumonia as confounding/attributing factors. (3) Respiratory syncytial virus (RSV): Qualifiers: RSV infection type: pneumonia Qualified Code(s): J12.1 - Respiratory syncytial virus pneumonia Code(s): B33.8 - Other specified viral diseases Status: Acute Assessment and Plan: - tested positive for RSV on 07/30/24 - CXR c/f pna, see below - supportive care: Tylenol p.r.n. Mucinex akilah DuoNeb p.r.n. Tessalon Perles p.r.n. Lozenge p.r.n. Methylprednisolone akilah - monitor WBC/CBC - currently requiring increased supplemental O2, continue to maintain O2 sat greater than 92%. Wean as tolerated. (4) Pneumonia: Qualifiers: Laterality: left Lung location: lower lobe of lung Pneumonia type: due to unspecified organism Qualified Code(s): J18.9 - Pneumonia, unspecified organism Code(s): J18.9 - Pneumonia, unspecified organism Status: Acute Assessment and Plan: - CXR: LLL pna - risk factors and complicating factors: RSV - started on CAP tx: Levaquin on 07/30 - MRSA PCR and sputum culture - supportive care - continue supplemental O2to maintain O2 sat greater than 92% - maintained 95% on RA and above without any distress. (5) Acute hyponatremia: Code(s): E87.1 - Hypo-osmolality and hyponatremia Status: Acute Assessment and Plan: - Na 127 -->132 this am - previous range: 132-139 - IV fluids: NS at 100 mL/hr - arrived neurologically intact, did have 2 syncopal episodes which has previously been attributed to hyponatremia. - able to eat well this am. (6) Hypertension: Qualifiers: Hypertension type: primary hypertension Qualified Code(s): I10 - Essential (primary) hypertension Code(s): I10 - Essential (primary) hypertension Status: Chronic Assessment and Plan: - chronic, currently 180/89 - continue home medications: Losartan - monitor Plan Discharged home, continue with Levaquin, prednisone, and electrolyte solutions as per PCP suggestions. DS: Summary Hospital Course Reason for hospitalization: Hyponatremia, developing PNE Hospital Course: This is a pleasant 78 y/o F presented with flu-like symptoms, syncope, and weakness with PMH of hypothyroidism, coronary atherosclerosis, chronic asthmatic bronchitis, asthma, COPD, depression, hypertension, and GERD. The patient presented the ER from a local urgent care for further evaluation of flu-like symptoms, generalized weakness, and two syncopal episodes. She reported onset of flu-like symptoms approximately 6 days ago. Reports that her had similar symptoms and has had resolution of symptoms. She sought care today because her symptoms were not improving at a local urgent care. During your examination there she reports she began to feel hot and lightheaded. Patient had brief syncopal episode with loss of consciousness <1 minute while she was seated. She denied fall or trauma. Patient was neurologically intact upon awakening. Patient had no recollection of a second syncopal episode, however this was reported by EMS and urgent care chart available for review. Per note, syncopal episode x2 back to back. Patient's heart rate dropped into the 40s and O2 decreased to 90% during the episode. She has a hx of syncope, which was attributed to electrolyte derangements and hyponatremia x2 separate events. She denied any significant cardiac hx. Denies focal numbness, focal weakness, changes in vision, or changes in speech. Initial VS at presentation: 98.4? F, HR 92, RR 20, 178/89, and 89% on room air. Now on 3L NC at 95%. ED workup found WBC 14.7, no anemia, ABG showed CO2 of 34.1 and O2 76.8, sodium 127 (previously 136 on 05/26/2024), creatinine 0.52 and GFR >60, CRP 5.8, and patient tested positive for RSV. CXR concerning for a left basilar airspace disease which may represent atelectasis or developing pneumonia. Initial EKG showed sinus rhythm, rate 91, minimal Q-waves inferior leads. patient was admitted for observation, continued IV fluids, patient was able to wean off oxygen rather quickly, and maintained her oxygen saturation 95% or higher throughout the evening. Patient was able to ambulate this morning without any shortness of breath or distress. Continue on Levaquin IV piggyback as well as Solu-Medrol IV. She states she feels much improved and is wanting to be discharged. Repeat labs noted a sodium of 132, white blood cell count 11.4, hemoglobin 11.7 hematocrit 35.2. Patient was able to be well this morning, she does state she has not been taking her electrolytes drinks at her PCP has recommended. She denies any injuries or concerns. Two the patient will consider home today, and she is no longer using any oxygen and feels well. Continue on prednisone and Levaquin outpatient. Discussed RSV positive, and avoiding public places. Educated for her to follow-up with her primary care provider in the next week, return emergency department any chest pain, shortness a a recent sinus symptoms. Continue with her home medications as prescribed. Cough medication as prescribed and educated. Internal questions to satisfaction she is agreeable to this plan. Status at Discharge Cognitive/behavioral status at discharge: at baseline Functional status at discharge: independent ambulation Overall status at discharge: patient is back to baseline Time Spent with Patient Time attestation: Total time spent providing and/or coordinating discharge services: Time spent: Greater than 30 minutes (45 minutes) Exam Narrative: crackles in right lung base, left absent/dimisined at base. no wheezing. exam fine. Const: Other: , female, nontoxic appearance Resp: Other: crackles in right lung base, left absent/diminished at base. no wheezing. Cardio: Other: S1-S2 present without murmur, rub, ectopy GI: Other: Abdomen soft, nondistended, nontender. Neuro: Other: A&O x4. Psych: Other: Good insight and judgment, pleasant DS: Data Data Completed and Pending Labs on day of discharge: Labs from last 24 hours 07/31/24 07/31/24 07/30/24 05:53 01:07 19:11 WBC 11.4 H RBC 4.05 L Hgb 11.7 L Hct 35.2 L MCV 86.9 MCH 28.9 MCHC 33.2 RDW 12.3 Plt Count 253 MPV 9.1 Immature Gran % (Auto) 0.5 Neut % (Auto) 88.1 H Lymph % (Auto) 9.3 L Archer % (Auto) 2.0 L Eos % (Auto) 0.0 Baso % (Auto) 0.1 L Lymph # (Auto) 1.05 Archer # (Auto) 0.2 Eos # (Auto) 0.0 Baso # (Auto) 0.0 Abs Immat Gran (auto) 0.06 H Absolute Neuts (auto) 10.0 H Absolute Nucleated RBC 0.000 Nucleated RBC % 0.0 Puncture Site ABG pH ABG pCO2 ABG pO2 ABG PO2/FiO2 Ratio ABG HCO3 ABG O2 Saturation ABG O2 Content ABG Base Excess A-a Gradient Oxyhemoglobin Total Hemoglobin O2 Delivery Device O2 Liters/Min FiO2 Sodium 132 L 132 L 131 L Potassium 3.9 4.0 3.9 Chloride 101 100 98 Carbon Dioxide 22 24 24 Anion Gap 9 8 9 BUN 10 9 8 Creatinine 0.49 L 0.47 L 0.47 L Estim Creat Clear Calc 66 69 69 Estimated GFR > 60 > 60 > 60 Glucose 165 H 161 H 222 H Lactic Acid Calcium 8.9 9.1 9.0 Total Bilirubin 0.4 AST 18 ALT 18 Alkaline Phosphatase 89 Troponin I C-Reactive Protein Total Protein 7.0 Albumin 3.5 Urine Color Urine Appearance Urine pH Ur Specific [place] Urine Protein Urine Glucose (UA) Urine Ketones Ur Blood (Man) Urine Nitrate Urine Bilirubin Urine Urobilinogen Leukocyte Esterase Rfl Urine RBC Urine WBC Ur Squamous Epith Cells Urine Bacteria Urine Casts Influenza A (RT-PCR) Influenza B (RT-PCR) RSV (RT-PCR) SARS-CoV-2 RNA (RT-PCR) 07/30/24 07/30/24 07/30/24 15:17 13:08 12:36 WBC RBC Hgb Hct MCV MCH MCHC RDW Plt Count MPV Immature Gran % (Auto) Neut % (Auto) Lymph % (Auto) Archer % (Auto) Eos % (Auto) Baso % (Auto) Lymph # (Auto) Archer # (Auto) Eos # (Auto) Baso # (Auto) Abs Immat Gran (auto) Absolute Neuts (auto) Absolute Nucleated RBC Nucleated RBC % Puncture Site Right radial ABG pH 7.430 ABG pCO2 34.1 L ABG pO2 76.8 L ABG PO2/FiO2 Ratio 2.40 ABG HCO3 22.1 ABG O2 Saturation 95.8 ABG O2 Content 18.5 ABG Base Excess -1.5 A-a Gradient 111.5 Oxyhemoglobin 94.4 Total Hemoglobin 13.9 O2 Delivery Device Nasal cannula O2 Liters/Min 3.0 FiO2 32 Sodium Potassium Chloride Carbon Dioxide Anion Gap BUN Creatinine Estim Creat Clear Calc Estimated GFR Glucose Lactic Acid 0.9 Calcium Total Bilirubin AST ALT Alkaline Phosphatase Troponin I C-Reactive Protein 5.8 H Total Protein Albumin Urine Color Yellow Urine Appearance Clear Urine pH 7.0 Ur Specific [place] 1.007 Urine Protein Trace Urine Glucose (UA) Negative Urine Ketones 1+ H Ur Blood (Man) Trace Urine Nitrate Negative Urine Bilirubin Negative Urine Urobilinogen 0.2 Leukocyte Esterase Rfl Negative Urine RBC 3-5 H Urine WBC 0-5 Ur Squamous Epith Cells None seen Urine Bacteria None seen Urine Casts 0-2 Influenza A (RT-PCR) Influenza B (RT-PCR) RSV (RT-PCR) SARS-CoV-2 RNA (RT-PCR) 07/30/24 11:38 WBC 14.7 H RBC 4.55 Hgb 13.4 Hct 39.6 MCV 87.0 MCH 29.5 MCHC 33.8 RDW 12.6 Plt Count 267 MPV 9.1 Immature Gran % (Auto) 0.3 Neut % (Auto) 79.7 H Lymph % (Auto) 11.1 L Archer % (Auto) 8.5 Eos % (Auto) 0.1 Baso % (Auto) 0.3 Lymph # (Auto) 1.63 Archer # (Auto) 1.3 H Eos # (Auto) 0.0 Baso # (Auto) 0.1 Abs Immat Gran (auto) 0.05 H Absolute Neuts (auto) 11.7 H Absolute Nucleated RBC 0.000 Nucleated RBC % 0.0 Puncture Site ABG pH ABG pCO2 ABG pO2 ABG PO2/FiO2 Ratio ABG HCO3 ABG O2 Saturation ABG O2 Content ABG Base Excess A-a Gradient Oxyhemoglobin Total Hemoglobin O2 Delivery Device O2 Liters/Min FiO2 Sodium 127 L Potassium 3.9 Chloride 93 L Carbon Dioxide 24 Anion Gap 10 BUN 9 Creatinine 0.52 L Estim Creat Clear Calc Not Reportable Estimated GFR > 60 Glucose 138 H Lactic Acid Calcium 9.3 Total Bilirubin 0.8 AST 22 ALT 20 Alkaline Phosphatase 122 Troponin I < 0.012 C-Reactive Protein Total Protein 8.0 Albumin 4.2 Urine Color Urine Appearance Urine pH Ur Specific [place] Urine Protein Urine Glucose (UA) Urine Ketones Ur Blood (Man) Urine Nitrate Urine Bilirubin Urine Urobilinogen Leukocyte Esterase Rfl Urine RBC Urine WBC Ur Squamous Epith Cells Urine Bacteria Urine Casts Influenza A (RT-PCR) Negative Influenza B (RT-PCR) Negative RSV (RT-PCR) Positive A SARS-CoV-2 RNA (RT-PCR) Negative Discharge Plan Discharge Attending physician on discharge: Alise Trejo Discharging Clinician: Alise Trejo Anticipated Discharge Date/Time: 07/31/24 11:08 Patient Disposition: Home, Self-Care Activity: may shower and as tolerated Diet: as tolerated Discharge Instructions: Continue with home medication, Levaquin, prednisone as prescribed. Continue cough medications as prescribed. Increase her fluids, and continue with electrolyte solution drinks as PCP recommended. Return emergency for any chest pain, shortness for other worrisome sign or symptom Patient Instructions: Antibiotic Form, Hyponatremia (DC), Community Acquired Pneumonia (DC), RSV (Respiratory Syncytial Virus) Infection (GEN) Patient Language: Mosotho Stand Alone Forms: General Discharge Information Follow-up/Referrals: Jaylen Purcell, [Primary Care Provider] - (call appointment for next week) Discharge Medications: New levofloxacin 750 mg tablet 750 mg PO DAILY 6 Days Qty: 6 0RF prednisone 20 mg tablet 40 mg PO BID 5 Days Qty: 20 0RF benzonatate 100 mg capsule 100 mg PO TID PRN (Reason: Cough) 5 Days Qty: 15 0RF Continued budesonide-formoterol 160-4.5 mcg/actuation HFA aerosol inhaler 2 puff inhalation Q12H calcium carbonate-vitamin D3 600 mg-10 mcg (400 unit) capsule 1 cap PO DAILY ferrous sulfate 325 mg (65 mg iron) tablet 325 mg PO DAILY glucosamine-chondroitin 900 mg tablet 900 mg PO DAILY loratadine 10 mg tablet 10 mg PO DAILY multivitamin Tablet 1 tablet PO DAILY Ocuvite Adult 50 Plus 250 mg (90 mg-160 mg) capsule 1 cap PO DAILY cyanocobalamin (vitamin B-12) [Vitamin B-12] 100 mcg tablet 100 mcg PO DAILY guaifenesin [Mucinex] 600 mg tablet extended release 12hr 600 mg PO BID albuterol sulfate 90 mcg/actuation HFA aerosol inhaler 1 puff inhalation Q4H PRN (Reason: shortness of breath or wheezing) Qty: 8.5 2RF montelukast 10 mg tablet 10 mg PO QPM rosuvastatin 20 mg tablet 20 mg PO HS omeprazole 40 mg capsule,delayed release(DR/EC) 40 mg PO DAILY Qty: 90 3RF levothyroxine 25 mcg tablet 25 mcg PO DAILY Qty: 90 1RF losartan 25 mg tablet 50 mg PO DAILY Qty: 180 1RF Date of admission: 07/31/24 10:32 Primary Care Provider: Jaylen Purcell Admitting Provider: Jess Castillo Attending physician on admission: Jess Castillo Condition: Stable Quality VTE Prophylaxis VTE prophylaxis: pharmacologic ordered Hospitalist MIPS Heart Failure (Exclusion) Patient has history of Heart Transplant or Left Ventricular Assistive Device?: No IF YES, STOP HERE Heart Failure (Qualifier) Patient has current or prior documentation of LVEF less than or equal to 40%, or mod/servere depressed LVSF?: No IF NO, STOP HERE
== END 2024-07-31 12:50 | disposition home or self-care (01) ==
LOC: ANHED 13:12 → ANH3MED 13:40
PROVIDERS: Emergency Medicine; Student in an Organized Health Care Education/Training Program; Admitting Provider Internal Medicine; Emergency Provider Emergency Medicine; PCP Internal Medicine; Visit Provider Internal Medicine
DX: A41.9 Sepsis, unspecified organism (principal); R65.20 Severe sepsis without septic shock; J96.01 Acute respiratory failure with hypoxia; J12.1 Respiratory syncytial virus pneumonia; B33.8 Other specified viral diseases; J18.9 Pneumonia, unspecified organism; E87.1 Hypo-osmolality and hyponatremia; E78.5 Hyperlipidemia, unspecified; E03.9 Hypothyroidism, unspecified; K21.9 Gastro-esophageal reflux disease without esophagitis; J45.909 Unspecified asthma, uncomplicated; J44.9 Chronic obstructive pulmonary disease, unspecified; I10 Essential (primary) hypertension; Z20.822 Contact with and (suspected) exposure to COVID-19
CPT/HCPCS: 36415; 36600; 71046; 80048; 80053; 81001; 82805; 83605; 84484; 85018; 85025; 86140; 87040; 87637; 93005; 94640; 96361; 96365; 96372; 96375; 96376; 99285; A9270; G0378; J1650; J1956; J2919; J7030

== ENCOUNTER 2024-08-18 13:21 | Outpatient (CLI) | payer MEDICARE, SELFPAY ==
--- OUTSIDE RECORDS SUMMARY | 2024-08-18 14:52 | XMS_ITS | Patient Health Summary ---
Author Organization [facility] Address [address] [place] [address] Care Team Providers Care Ac/Dc Rewinder Name Role Phone Jaylen Purcell DO Primary Care Provider [phone] Note from [facility],non-owned Affiliates and Associated Physician Practices is amultiple site organization consisting of ambulatory clinics and hospital sitesin [place], [place], [place] and [place]. This disclosure is being madepursuant to the Care Everywhere program and may not contain all information available regarding this patient. Last updated 18.[facility] Allergies No known active allergies Medications * [...] 23.12 04/08/2024 2:18 PM CDT Procedures * AL NASAL ENDOSCOPY,DX(Performed 04/08/2024) Performed for Nasal congestion, Nasal obstruction, Acute cough, Nasal drainage, PND (post-nasal drip) Results * AL NASAL ENDOSCOPY,DX (04/08/2024 2:35 PM CDT) Narrative [...] MD PROCEDURE/MINOR GONZALEZ RGICAL ORDERABLES Care Teams Ac/Dc Rewinder Relationship Specialty Start Date End Date Jaylen Purcell DO [address] [place] [address] PCP - General Internal Medicine 04/08/24
--- OUTSIDE RECORDS SUMMARY | 2024-08-18 14:52 | XMS_ITS | Clinical Summary ---
Author Organization [facility] Address [address] [place] [address] Care Team Providers Care Chyron Operator Name Role Phone Jaylen Purcell DO Primary Care Provider [phone] Source Comments [facility],non-owned Affiliates and Associated Physician Practices is amultiple site organization consisting of ambulatory clinics and hospital sitesin [place], [place], [place] and [place]. This disclosure is being madepursuant to the Care Everywhere program and may not contain all information available regarding this patient. Last updated 18.[facility] Allergies No known active allergies Medications * [...] age to complete this topic Care Teams Chyron Operator Relationship Specialty Start Date End Date Jaylen Purcell DO [address] [place] [address] PCP - General Internal Medicine 04/08/24
--- OUTSIDE RECORDS SUMMARY | 2024-08-18 14:52 | XMS_ITS | Referral Summary ---
Author Organization [facility] Address [address] [place] [address] Care Team Providers Care Equine Dentist Name Role Phone Jaylen Purcell DO Primary Care Provider [phone] Source Comments [facility],non-owned Affiliates and Associated Physician Practices is amultiple site organization consisting of ambulatory clinics and hospital sitesin [place], [place], [place] and [place]. This disclosure is being madepursuant to the Care Everywhere program and may not contain all information available regarding this patient. Last updated 18.[facility] Allergies No known active allergies Medications * [...] of Treatment Not on file Care Teams Equine Dentist Relationship Specialty Start Date End Date Jaylen Purcell DO [address] [place] [address] PCP - General Internal Medicine 04/08/24
--- OUTSIDE RECORDS SUMMARY | 2024-08-18 14:52 | XMS_ITS | Clinical Summary ---
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
[2024-08-18 19:19] LABS: Basophils Absolute Auto 0.1 K/mm3 (0.0-0.1); Basophils Percent Auto 0.5 % (0.2-1.2); Eosinophils Absolute Auto 0.2 K/mm3 (0-0.3); Eosinophils Percent Auto 2.2 % (0-4.4); Hematocrit 38.3 % (37.0-47.0); Hemoglobin 12.4 g/dL (12.0-15.0); Immature Granulocyte Absolute 0.05 K/mm3 (0.00-0.031); Immature Granulocyte Percent A 0.5 % (0-0.5); Lymphocytes Percent Auto 10.1 % (18.3-44.2); Mean Corpuscular HGB Conc 32.4 g/dl (32-36); Mean Corpuscular Hemoglobin 28.9 pg (26-34); Mean Corpuscular Volume 89.3 fl (80-100); Mean Platelet Volume 9.6 fl (7.4-10.4); Monocytes Absolute Auto 0.9 K/mm3 (0.1-0.6); Monocytes Percent Auto 8.8 % (2.6-8.5); Neutrophils Absolute Auto 7.8 K/mm3 (1.3-6.7); Neutrophils Percent Auto 77.9 % (45.5-73.1); Platelet Count Result 310 k/mm3 (150-375); Red Blood Count 4.29 M/mm3 (4.2-5.4); Red Cell Distribution Width 13.2 % (11.5-14.5)
[2024-08-18 19:39] LABS: Anion Gap 8 mmol/L (4-12); Blood Urea Nitrogen 10 mg/dL (7-17); Calcium 9.3 mg/dL (8.4-10.2); Carbon Dioxide 27 mmol/L (22-30); Chloride 94 mmol/L (98-107); Estimated Glomerular Filt Rate > 60; Glucose 115 mg/dL (65-110); Potassium 4.8 mmol/L (3.4-5.0); Sodium 129 mmol/L (137-145)
== END 2024-08-18 13:22 | disposition home or self-care (01) ==
LOC: ANHGOSHLAB 13:22
PROVIDERS: PCP Internal Medicine; Visit Provider Nurse Practitioner
DX: E87.1 Hypo-osmolality and hyponatremia (principal); J12.1 Respiratory syncytial virus pneumonia
CPT/HCPCS: 36415; 80048; 85025

== ENCOUNTER 2024-09-07 11:14 | Outpatient (CLI) | payer MEDICARE, SELFPAY ==
--- OUTSIDE RECORDS SUMMARY | 2024-09-07 12:43 | XMS_ITS | Clinical Summary ---
Author Organization [facility] Address [address] [place] [address] Care Team Providers Care Lye Treater Name Role Phone Jaylen Purcell DO Primary Care Provider [phone] Source Comments [facility],non-owned Affiliates and Associated Physician Practices is amultiple site organization consisting of ambulatory clinics and hospital sitesin [place], [place] and [place]. This disclosure is being madepursuant to the Care Everywhere program and may not contain all information available regarding this patient. Last updated 18.[facility] Allergies No known active allergies Medications * [...] complete this topic MENINGOCOCCAL (Group B) VACCINE SHARED DECISION-MAKING Aged Out No longer eligible based on patient's age to complete this topic MENINGOCOCCAL GROUPS A/C/Y/W VACCINE Aged Out No longer eligible based on patient's age to complete this topic Care Teams Lye Treater Relationship Specialty Start Date End Date Jaylen Purcell DO [address] [place] [address] PCP - General Internal Medicine 04/08/24
--- OUTSIDE RECORDS SUMMARY | 2024-09-07 12:43 | XMS_ITS | Clinical Summary ---
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 Gender Identity Not on file Sexual Orientation [...] Health Maintenance Due Date Last Done Comments Hepatitis C Virus (HCV) Screening 1945 Pneumococcal Immunization (50+ years) (2 of 2 - PCV) 08/14/2001 08/14/2000, 06/08/1999 Respiratory Syncytial Virus (RSV) Immunization (Adult) (1 - 1-dose 75+ series) 2021 Influenza Immunization (#1) 02/09/202402/09, 03/04/2020, 03/12/2019, Additional history exists SARS-COV-2 Immunization () 02/09/2024 10/18/2021, 04/16/2021, 07/21/2020, Additional history exists DTaP/Tdap/Td [...] age to complete this topic Insurance MEDICARE SERVICES, [place] [id number] [facility] 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
[2024-09-07 14:07] LABS: Anion Gap 8 mmol/L (4-12); Blood Urea Nitrogen 10 mg/dL (7-17); Calcium 9.4 mg/dL (8.4-10.2); Carbon Dioxide 29 mmol/L (22-30); Chloride 97 mmol/L (98-107); Estimated Glomerular Filt Rate > 60; Glucose 105 mg/dL (65-110); Potassium 4.4 mmol/L (3.4-5.0); Sodium 134 mmol/L (137-145)
== END 2024-09-07 11:15 | disposition home or self-care (01) ==
LOC: ANHGOSHLAB 11:16
PROVIDERS: PCP Internal Medicine; Visit Provider Nurse Practitioner
DX: E87.1 Hypo-osmolality and hyponatremia (principal)
CPT/HCPCS: 36415; 80048

== ENCOUNTER 2024-10-08 10:22 | Outpatient (CLI) | payer MEDICARE, SELFPAY ==
--- OUTSIDE RECORDS SUMMARY | 2024-10-08 11:10 | XMS_ITS | Clinical Summary ---
Author Organization [facility] Address [address] [facility] [place] [address] Care Team Providers Care Tandem Mill Operator Name Role Phone Jaylen Purcell DO Primary Care Provider [phone] Source Comments [facility],non-owned Affiliates and Associated Physician Practices is amultiple site organization consisting of ambulatory clinics and hospital sitesin [place], [place], [place] and [place]. This disclosure is being madepursuant to the Care Everywhere program and may not contain all information available regarding this patient. Last updated 18.[facility] Allergies No known active allergies Medications * Be aware that medications may not be up to date on this document. Alwaysverify current medications with the patient. rosuvastatin (Crestor) 20 MG tablet Take 1 (one) tablet by mouth once daily Active losartan (Cozaar) 25 MG tablet Take 2 (two) tablets by mouth once daily 03/11/2024 Active levothyroxine (Synthroid) 25 MCG tablet Take 1 (one) tablet by mouth once daily Active omeprazole (PriLOSEC) 40 MG capsule Take 1 (one) capsule by mouth once daily 03/22/2024 Active budesonide-form oterol (Symbicort) 160-4.5 MCG/ACT inhaler Inhale 2 (two) puffs by mouth 2 times daily Active Active Problems No known active problems Immunizations Immunization Administration Dates Next Due Vinicio Covd-19 Mrna Vacci ne (Nucleoside Modified) 04/10/2023 [...] = 0.6 oz pur e alcohol) Comments Unknown Sex and Gender Information Value Date Recorded Sex Assigned at Not on file Legal Sex Female 10:11 AM CDT Gender Identity Not on file Sexual Orientation [...] 2024 04/10/2023, 04/12/2022, 10/18/2021, Additional history exists DEPRESSION SCREENING 06/10/2024 INFLUENZA VACCINE (Season Ended) 2025 03/25/2023, 03/28/2022, 03/07/2021, Additional history exists ZOSTER VACCINE Completed 10/31/2017, 08/09, 04/12/2009 BONE DENSITY TESTING Completed 10/16/2021, 02/03/20 PNEUMOCOCCAL VACCINE 50+ Completed 023, 08/14/2000, 06/08/1999 [...] age to complete this topic Insurance MEDICARE [facility] [place] [id number] Care Teams Tandem Mill Operator Relationship Specialty Start Date End Date Jaylen Purcell DO [address] [place] [id number] PCP - General Internal Medicine 04/08/24
--- OUTSIDE RECORDS SUMMARY | 2024-10-08 11:10 | XMS_ITS | Clinical Summary ---
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
[2024-10-08 19:52] LABS: Anion Gap 8 mmol/L (4-12); Blood Urea Nitrogen 13 mg/dL (7-17); Calcium 9.3 mg/dL (8.4-10.2); Carbon Dioxide 29 mmol/L (22-30); Chloride 97 mmol/L (98-107); Estimated Glomerular Filt Rate > 60; Glucose 82 mg/dL (65-110); Potassium 4.3 mmol/L (3.4-5.0); Sodium 134 mmol/L (137-145)
== END 2024-10-08 10:23 | disposition home or self-care (01) ==
LOC: ANHGOSHLAB 10:23
PROVIDERS: PCP Internal Medicine; Visit Provider Nurse Practitioner
DX: E87.1 Hypo-osmolality and hyponatremia (principal)
CPT/HCPCS: 36415; 80048

== ENCOUNTER 2024-12-14 11:30 | Outpatient (CLI) | payer MEDICARE, SELFPAY ==
--- OUTSIDE RECORDS SUMMARY | 2024-12-14 11:41 | XMS_ITS | Clinical Summary ---
Author Organization [facility] Address [address] [place] [address] Care Team Providers Care Prime Broker Name Role Phone Jaylen Purcell DO Primary Care Provider [phone] Source Comments [facility],non-owned Affiliates and Associated Physician Practices is amultiple site organization consisting of ambulatory clinics and hospital sitesin [place], [place], [place] and [place]. This disclosure is being madepursuant to the Care Everywhere program and may not contain all information available regarding this patient. Last updated 18.[facility] Allergies No known active allergies Medications * [...] 2:18 PM CDT Height 160 cm (5' 3) 04/08/2024 2:18 PM CDT Body Mass Index 23.12 04/08/2024 2:18 PM CDT Plan of Treatment Health Maintenance Due Date Last Done Comments MEDICARE AWV 12 MONTHS 1945 HEPATITIS C SCREENING 08/24/1964 DTAP/TDAP/TD VACCINES (2 - Td or Tdap) 12/30/2022 12/30/2012 COVID-19 VACCINE ( season) 2024 04/10/2023, 04/12/2022, 10/18/2021, Additional history exists DEPRESSION SCREENING 06/10/2024 INFLUENZA VACCINE (#1) 2025 , 03/28/2022, 03/07/2021, Additional history exists ZOSTER VACCINE [...] age to complete this topic Insurance MEDICARE [facility] Address: [place] [address] [address] [id number] Care Teams Prime Broker Relationship Specialty Start Date End Date Jaylen Purcell DO [address] [place] [id number] PCP - General Internal Medicine 04/08/24
--- OUTSIDE RECORDS SUMMARY | 2024-12-14 11:41 | XMS_ITS | Clinical Summary ---
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 Gender Identity Not on file Sexual Orientation [...] 1:58 PM CDT Height 162.6 cm (5' 4) 01/22/2018 1:58 PM CDT Body Mass Index 22.31 01/22/2018 1:58 PM CDT Plan of Treatment Health Maintenance Due Date Last Done Comments Hepatitis C Virus (HCV) Screening 1945 Pneumococcal Immunization (50+ years) (2 of 2 - PCV) 08/14/2001 08/14/2000, 06/08/1999 Respiratory Syncytial Virus (RSV) Immunization (Adult) (1 - 1-dose 75+ series) 2021 SARS-COV-2 Immunization ( season) 2024 10/18/2021, 04/16/2021, 07/21/2020, Additional history exists Influenza Immunization (Season Ended) 2025 03/07/2021, 03/04/2020, 03/12/2019, Additional history exists DTaP/Tdap/Td Immunization Discontinued 12/30/2012 TdaP Immunization Completed 12/30/2012 Zoster Immunization Completed 10/31/2017, 2017, 04/12/2009 Hepatitis B Immunization Aged Out No longer eligible based on patient's age to complete this topic Human Papillomavirus (HPV) Immunization Aged Out No longer eligible based on patient's age to complete this topic Meningococcal Immunization (ACWY) Aged Out No longer eligible based on patient's age to complete this topic Rotavirus Immunization Aged Out No lo nger eligible based on patient's age to complete this topic Insurance MEDICARE [facility] 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
[2024-12-16 13:28] LABS: Osmolality, Urine. 205 mOsm/kg (50-1200)
== END 2024-12-14 11:31 | disposition home or self-care (01) ==
PROVIDERS: PCP Internal Medicine; Visit Provider Internal Medicine
DX: E87.1 Hypo-osmolality and hyponatremia (principal)
CPT/HCPCS: 83935; 84300

== ENCOUNTER 2024-12-18 08:17 | Outpatient (CLI) | payer MEDICARE, SELFPAY ==
--- OUTSIDE RECORDS SUMMARY | 2024-12-18 08:21 | XMS_ITS | Clinical Summary ---
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
--- OUTSIDE RECORDS SUMMARY | 2024-12-18 08:21 | XMS_ITS | Clinical Summary ---
Author Organization [facility] [employer] Address [address] [place] [address] Care Team Providers Care Music Publicist Name Role Phone Jaylen Purcell DO Primary Care Provider [phone] Source Comments [facility] [employer],non-owned Affiliates and Associated Physician Practices is amultiple site organization consisting of ambulatory clinics and hospital sitesin [place], [place], [place] and [place]. This disclosure is being madepursuant to the Care Everywhere program and may not contain all information available regarding this patient. Last updated 18.[facility] [employer] Allergies No known active allergies Medications * [...] age to complete this topic Insurance MEDICARE [facility] [place] [id number] Care Teams Music Publicist Relationship Specialty Start Date End Date Jaylen Purcell DO [address] [place] [id number] PCP - General Internal Medicine 04/08/24
[2024-12-18 12:35] LABS: Thyroid Stimulating Hormone 2.480 uIU/mL (0.465-4.680)
== END 2024-12-18 08:18 | disposition home or self-care (01) ==
PROVIDERS: PCP Internal Medicine; Visit Provider Internal Medicine
DX: E87.1 Hypo-osmolality and hyponatremia (principal)
CPT/HCPCS: 36415; 82533; 84443

== ENCOUNTER 2025-01-25 10:37 | Outpatient (CLI) | payer MEDICARE, SELFPAY ==
--- OUTSIDE RECORDS SUMMARY | 2025-01-25 11:34 | XMS_ITS | Clinical Summary ---
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
[2025-01-25 13:28] LABS: CRP < 0.5 mg/dL (<1.0)
== END 2025-01-25 10:38 | disposition home or self-care (01) ==
LOC: ANHGOSHLAB 10:45
PROVIDERS: PCP Internal Medicine; Visit Provider Nurse Practitioner
DX: G45.3 Amaurosis fugax (principal)
CPT/HCPCS: 36415; 85652; 86140

== ENCOUNTER 2025-01-26 10:24 | Outpatient (CLI) | payer MEDICARE, SELFPAY ==
--- NOTE | ~2025-01-26 | MR_ITS ---
EXAMINATION: MR brain/brain stem wo/w con, MRA brain wo con DATE: 01/26/2025 11:25 INDICATION: Amaurosis fugax TECHNIQUE: 1. Magnetic resonance imaging (MRI) of the brain and brainstem was performed without and with 12 mL Multihance intravenous contrast. Sequences included sagittal and axial T1-weighted SE, axial diffusion-weighted FS SE, axial 3D SWAN, axial T2-weighted FLAIR, and axial T2-weighted FSE. Postcontrast axial T1- weighted SE was obtained. Apparent diffusion coefficient (ADC) maps were created. 2. Magnetic resonance angiography (MRA) of the brain was performed without intravenous contrast by the 3D [id number] technique. COMPARISON: None. FINDINGS: Brain MRI: There are no areas of restricted diffusion to suggest acute infarction. No intracranial hemorrhage or abnormal intracranial mass lesion. There are prominent perivascular spaces along the inferior aspect of the bilateral basal ganglia. There are no intraparenchymal signal abnormalities seen on the other pulse sequences. The ventricles are symmetric and normal in size. There are no abnormal extra-axial fluid collections. Flow voids are seen in the cerebral arteries on the T2-weighted sequences consistent with their expected patency. Moderate mucosal thickening the paranasal sinuses with dependently layering mucus in the bilateral maxillary sinuses consistent with acute sinusitis. Visualized orbits and soft tissues are unremarkable. There are no areas of abnormal enhancement on the post contrast images. Head MRA: Bilateral vertebral arteries are codominant. There are bilateral A1 and P1 segments are patent. There is also a patent right posterior communicating artery. No evident hemodynamically significant stenosis, thrombosis or aneurysm larger caliber central cerebral arteries. Cerebral arterial arborization appears symmetric. IMPRESSION: 1. Normal aging brain. No acute intracranial process or abnormally enhancing brain lesions. 2. Unremarkable cerebral MR angiogram with no evident aneurysm, hemodynamically significant stenosis or thrombosis. 3. Moderate mucosal thickening in the paranasal sinuses with dependently layering mucus in the bilateral maxillary sinuses consistent with acute sinusitis. Reviewed, dictated and finalized at location A. IMPRESSION: 1. Normal aging brain. No acute intracranial process or abnormally enhancing br ain lesions. 2. Unremarkable cerebral MR angiogram with no evident aneurysm, hemodynamically significant stenosis or thrombosis. 3. Moderate mucosal thickening in the paranasal sinuses with dependently layeri ng mucus in the bilateral maxillary sinuses consistent with acute sinusitis.
--- OUTSIDE RECORDS SUMMARY | 2025-01-26 10:55 | XMS_ITS | Clinical Summary ---
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
--- OUTSIDE RECORDS SUMMARY | 2025-01-26 10:55 | XMS_ITS | Clinical Summary ---
Author Organization [facility] [employer] Address [address] [facility] [address] [place] [address] Care Team Providers Care Automobile Wrecker Name Role Phone Jaylen Purcell DO Primary Care Provider [phone] Source Comments [facility] [employer],non-owned Affiliates and Associated Physician Practices is amultiple site organization consisting of ambulatory clinics and hospital sitesin [place], [place], [place] and [place]. This disclosure is being madepursuant to the Care Everywhere program and may not contain all information available regarding this patient. Last updated 18.[facility] [employer] Allergies No known active allergies Medications * [...] Active Active Problems No known active problems Encounters Date Type Department Care Team Description 01/21/2025 Travel from Last 3 Months Immunizations Immunization Administration Dates Next Due Comirnaty Covd-19 Mrna Vacci ne (Nucleoside Modified) 04/10/2023 [...] 04/08/2024 2:18 PM CDT Plan of Treatment Upcoming Encounters Date Type Department Care Team (Late st Contact Info) Description 04/01/2025 1:45 PM CDT Office Visit [facility] [address] [place] [address] [place] [address] [place] [address] Health Maintenance Due Date Last Done Comments HEPATITIS C SCREENING 08/24/1964 DTAP/TDAP/TD VACCINES (2 - Td or Tdap) 12/30/2022 12/30/2012 COVID-19 VACCINE ( season) 2024 04/10/2023, 04/12/2022, 10/18/2021, Additional history exists DEPRESSION SCREENING 06/10/2024 MEDICARE AWV CALENDAR YEAR 2024 INFLUENZA VACCINE (#1) 2025 , 03/28/2022, 03/07/2021, [...] age to complete this topic Insurance MEDICARE [facility] [employer] MANAGED MEDICARE ADV Care Teams Automobile Wrecker Relationship Specialty Start Date End Date Jaylen Purcell DO [address] [place] [address] PCP - General Internal Medicine 04/08/24
== END 2025-01-26 10:25 | disposition home or self-care (01) ==
PROVIDERS: PCP Internal Medicine; Visit Provider Nurse Practitioner
DX: G45.3 Amaurosis fugax (principal); J34.89 Other specified disorders of nose and nasal sinuses
CPT/HCPCS: 70544; 70553; A9577

== ENCOUNTER 2025-02-10 16:16 | Outpatient (CLI) | payer MEDICARE, SELFPAY ==
--- NOTE | ~2025-02-10 | US_ITS ---
EXAMINATION: US carotid duplex BI DATE: 02/10/2025 17:37 INDICATION: Amaurosis fugax TECHNIQUE: Grayscale, color Doppler, and pulsed Doppler images of the cervical carotid arteries were obtained. The degree of vessel stenosis is placed in one of the following categories: normal, <50%, 50-69%, >=70% but less than near- occlusion, near-occlusion, or total occlusion. Note that percent stenosis relative to normal distal artery lumen diameter is indirectly measured from velocity measurements as described by Joaquin, et al. Radiology 2003; 229:340-346. Notes: Normal: Peak systolic velocity <125 centimeters/sec and no plaque <50%. Peak systolic velocity <125 (EDV <40; ICA/CCA PSV ratio <2.0; used these factors only a tandem lesions or low cardiac output or contralateral disease) 50-69 %: PSV 125-230 (EDV 40-100; ratio 2-4) >= 70% but less than near occlusion: PSV greater than 230 (EDV > 100; ratio> 4.0) Near Occlusion: PSV that is variable; markedly narrowed lumen Occlusion: Absent flow on color/spectral Doppler and no lumen on fox scale. COMPARISON: None. FINDINGS: RIGHT: The right common carotid artery (CCA) peak systolic velocity (PSV) is 85 cm/s. The right internal carotid artery (ICA) PSV is 172 cm/s. The right ICA end- diastolic velocity (EDV) is 27 cm/s. The right ICA/CCA PSV ratio is 2.0. The external carotid artery (ECA) PSV is 109 cm/s. There is antegrade flow in the right vertebral artery. LEFT: The left CCA PSV is 70 cm/s. The left ICA PSV is 111 cm/s. The left ICA EDV is 28 cm/s. The left ICA/CCA PSV ratio is 1.6. The ECA PSV is 91 cm/s. There is antegrade flow in the left vertebral artery. IMPRESSION: 1. 50-69% stenosis in the right internal carotid artery by sonographic criteria. 2. Less than 50% stenosis in the left internal carotid artery by sonographic criteria. Reviewed, dictated and finalized at location O. IMPRESSION: 1. 50-69% stenosis in the right internal carotid artery by sonographic criteria . 2. Less than 50% stenosis in the left internal carotid artery by sonographic cr iteria.
--- OUTSIDE RECORDS SUMMARY | 2025-02-10 17:11 | XMS_ITS | Clinical Summary ---
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
--- OUTSIDE RECORDS SUMMARY | 2025-02-10 17:11 | XMS_ITS | Clinical Summary ---
Author Organization [facility] [employer] Address [address] [facility] [place] [address] Care Team Providers Care Vp Compliance Name Role Phone Jaylen Purcell DO Primary Care Provider [phone] Source Comments [facility] [employer],non-owned Affiliates and Associated Physician Practices is amultiple site organization consisting of ambulatory clinics and hospital sitesin [place], [place], [place] and [place]. This disclosure is being madepursuant to the Care Everywhere program and may not contain all information available regarding this patient. Last updated 18.[facility] Allergies No known active allergies Medications * [...] Visit [facility] [address] [place] [address] [place] [address] [place] [address] Health Maintenance Due Date Last Done Comments HEPATITIS C SCREENING 08/24/1963 DTAP/TDAP/TD VACCINES (2 - Td or Tdap) 12/30/2022 12/30/2012 DEPRESSION SCREENING 06/10/2024 MEDICARE AWV CALENDAR YEAR 2024 COVID-19 VACCINE ( season) 2025 04/10/2023, 04/12/2022, 10/18/2021, Additional history exists INFLUENZA VACCINE (#1) 2025 , 03/28/2022, 03/07/2021, [...] age to complete this topic Insurance MEDICARE [facility] [employer] MANAGED MEDICARE ADV Care Teams Vp Compliance Relationship Specialty Start Date End Date Jaylen Purcell DO [address] [place] [address] PCP - General Internal Medicine 04/08/24
== END 2025-02-10 16:17 | disposition home or self-care (01) ==
PROVIDERS: PCP Internal Medicine; Visit Provider Nurse Practitioner
DX: I65.23 Occlusion and stenosis of bilateral carotid arteries (principal)
CPT/HCPCS: 93880